=== PATIENT | female | born 1950 | race African-American/Black ===

== ENCOUNTER → 2016-04-22 | Outpatient (CLI) | payer BC ==
[2015-05-10 11:18] VITALS: BP 161/112
[~2016-04-22] MED LIST: DOCU-27 PO; HYDR-2666 PO; HYDR-2679 PO; PHEN100C PO; PHEN100T2
--- NOTE | 2016-04-22 14:50 | KCIC ---
PROCEDURE Bone mineral density exam HISTORY Postmenopausal COMPARISON None FINDINGS Left hip bone mineral density 1.168 grams/centimeters corresponds with a T-score 1.9 and a Z-score 1.8. Lumbar spine bone mineral density of 1.308 grams/cm2 corresponds with a T-score of-2.4 and a Z-score 3.3. World Health Organization criteria for bone mineral density interpretation: Normal T-score greater than or equal to-1.0, Osteopenia T score between-1.0 and-2.5, Osteoporosis T-score less than or equal to-2.5. IMPRESSION 1. There is normal bone density of the left hip and the lumbar spine. Electronically signed by: Kvng Chacon MD (Apr 22, 2016 14:49:26)
== END | disposition home or self-care (01) ==
LOC: KCIC DEXA 09:45
PROVIDERS: ATTEND Internal Medicine
DX: Z78.0 Asymptomatic menopausal state (principal); M81.8 Other osteoporosis without current pathological fracture
CPT/HCPCS: 77080

== ENCOUNTER 2017-03-24 03:15 | Inpatient (IN) | payer BC ==
[~2017-03-24] VITALS: Ht 170.2 cm; Wt 118.8 kg
[2017-03-24] VITALS (9 sets, daily range): BP systolic 127–161; BP diastolic 56–90
[~2017-03-24 03:15] MED LIST changes: +DOCU-109 PO; -DOCU-27 PO; -HYDR-2666 PO; +HYDR-2758 PO
[2017-03-24] MEDS ORDERED: IV NORMAL SALINE 1000ML BAG 1,000 ML IV SCH (03:45)
--- NOTE | 2017-03-24 03:50 | PHYS DOC ---
Past Medical History Past Medical History: Seizure Past Surgical History: Other Additional Past Surgical Histo: BACK SX Alcohol Use: None Drug Use: None Adult General Chief Complaint Chief Complaint: NAUSEA/VOMITING/DIARRHA HPI HPI Patient is a 66 year old female who presents with complaint of abdominal pain that started 2 hours prior to arrival. Patient states that the pain awoke her from sleep. Patient states that she is having sharp cramping pain along the right side of her upper abdomen which radiates towards her back. Patient denies history of similar symptoms. Patient has had nausea and vomiting associated with her symptoms. Patient denies any known fever and has had no diarrhea. Patient states that she has not taken any medications to help with her symptoms. Patient denies chest pain. Patient rates pain currently is 10 out of 10. Review of Systems Review of Systems Constitutional: Denies fever or chills [] Eyes: Denies change in visual acuity, redness, or eye pain [] HENT: Denies nasal congestion or sore throat [] Respiratory: Denies cough or shortness of breath [] Cardiovascular: Denies chest pain or edema [] GI: Abdominal pain, nausea, vomiting[] : Denies dysuria or hematuria [] Musculoskeletal: Denies back pain or joint pain [] Integument: Denies rash or skin lesions [] Neurologic: Denies headache, focal weakness or sensory changes [] All other systems were reviewed and found to be within normal limits, except as documented in this note. Current Medications Current Medications Current Medications Medications (Trade) Dose Ordered Sig/Gwendolyn Start Time Stop Time Status Last Admin Dose Admin Famotidine (Pepcid Vial) 20 mg 1X ONCE 03/24/17 04:00 03/24/17 04:01 DC 03/24/17 04:20 20 MG Fentanyl Citrate (Fentanyl 2ml Vial) 50 mcg PRN Q15MIN PRN 03/24/17 03:45 03/25/17 03:44 03/24/17 05:50 50 MCG Info (Do NOT chart on this entry -- for MONITORING) 1 each PRN DAILY PRN 03/24/17 06:30 03/26/17 06:29 Iohexol (Omnipaque 300 Mg/ml) 75 ml 1X ONCE 03/24/17 06:15 03/24/17 06:16 DC 03/24/17 06:35 75 ML Ondansetron HCl (Zofran) 4 mg 1X ONCE 03/24/17 04:45 03/24/17 04:59 DC 03/24/17 04:39 4 MG Sodium Chloride 1,000 ml @ 1,000 mls/hr Q1H 03/24/17 03:45 03/24/17 04:45 DC 03/24/17 04:20 1,000 MLS/HR Allergies Allergies Allergies Coded Allergies Type Severity Reaction Last Updated Verified No Known Drug Allergies 09/10/14 No Physical Exam Physical Exam Constitutional: Alert, afebrile, appears in moderate to severe discomfort. [] HENT: Normocephalic, atraumatic, bilateral external ears normal, oropharynx moist, no oral exudates, nose normal. [] Eyes: PERRLA, EOMI, conjunctiva normal, no discharge. [] Neck: Normal range of motion, no tenderness, supple, no stridor. [] Cardiovascular:Heart rate regular rhythm, no murmur [] Lungs & Thorax: Bilateral breath sounds clear to auscultation [] Abdomen: Bowel sounds normal, soft, epigastric and right upper quadrant tenderness to palpation with mild guarding, no rebound tenderness, no masses, no pulsatile masses. [] Skin: Warm, dry, no erythema, no rash. [] Back: No tenderness, no CVA tenderness. [] Extremities: No tenderness, no cyanosis, no clubbing, ROM intact, no edema. [] Neurologic: Alert and oriented X 3, normal motor function, normal sensory function, no focal deficits noted. [] Current Patient Data Vital Signs Vital Signs Date Time Temp Pulse Resp B/P (MAP) Pulse Ox O2 Delivery O2 Flow Rate FiO2 03/24/17 07:00 97.2 68 15 181/95 96 Room Air 97.2 Lab Values Laboratory Tests Test 03/24/17 04:15 03/24/17 04:50 White Blood Count 7.2 x10^3/uL (4.0-11.0) Red Blood Count 4.48 x10^6/uL (3.50-5.40) Hemoglobin 14.0 g/dL (12.0-15.5) Hematocrit 41.2 % (36.0-47.0) Mean Corpuscular Volume 92 fL (79-100) Mean Corpuscular Hemoglobin 31 pg (25-35) Mean Corpuscular Hemoglobin Concent 34 g/dL (31-37) Red Cell Distribution Width 13.9 % (11.5-14.5) Platelet Count 278 x10^3/uL (140-400) Neutrophils (%) (Auto) 58 % (31-73) Lymphocytes (%) (Auto) 32 % (24-48) Monocytes (%) (Auto) 6 % (0-9) Eosinophils (%) (Auto) 3 % (0-3) Basophils (%) (Auto) 1 % (0-3) Neutrophils # (Auto) 4.1 x10^3uL (1.8-7.7) Lymphocytes # (Auto) 2.3 x10^3/uL (1.0-4.8) Monocytes # (Auto) 0.4 x10^3/uL (0.0-1.1) Eosinophils # (Auto) 0.2 x10^3/uL (0.0-0.7) Basophils # (Auto) 0.1 x10^3/uL (0.0-0.2) Sodium Level 143 mmol/L (136-145) Potassium Level 3.7 mmol/L (3.5-5.1) Chloride Level 107 mmol/L (98-107) Carbon Dioxide Level 25 mmol/L (21-32) Anion Gap 11 (6-14) Blood Urea Nitrogen 10 mg/dL (7-20) Creatinine 0.7 mg/dL (0.6-1.0) Estimated GFR (Cockcroft-Gault) 101.9 BUN/Creatinine Ratio 14 (6-20) Glucose Level 155 mg/dL (70-99) H Calcium Level 8.4 mg/dL (8.5-10.1) L Total Bilirubin 0.2 mg/dL (0.2-1.0) Aspartate Amino Transferase (AST) 16 U/L (15-37) Alanine Aminotransferase (ALT) 21 U/L (14-59) Alkaline Phosphatase 100 U/L (46-116) Creatine Kinase 157 U/L (26-192) Creatine Kinase MB (Mass) 1.0 ng/mL (0.0-3.6) Creatine Kinase MB Relative Index 0.6 % (0-4) Troponin I Quantitative < 0.017 ng/mL (0.000-0.055) Total Protein 7.1 g/dL (6.4-8.2) Albumin 3.4 g/dL (3.4-5.0) Albumin/Globulin Ratio 0.9 (1.0-1.7) L Lipase 148 U/L (73-393) Urine Collection Type Unknown Urine Color Yellow Urine Clarity Clear Urine pH 6.0 Urine Specific [place] 1.020 Urine Protein Negative mg/dL (NEG-TRACE) Urine Glucose (UA) Negative mg/dL (NEG) Urine Ketones (Stick) Negative mg/dL (NEG) Urine Blood Trace (NEG) Urine Nitrite Negative (NEG) Urine Bilirubin Negative (NEG) Urine Urobilinogen Dipstick 0.2 mg/dL (0.2 mg/dL) Urine Leukocyte Esterase Small (NEG) Urine RBC 3-5 /HPF (0-2) Urine WBC 5-10 /HPF (0-4) Urine Squamous Epithelial Cells Mod /LPF Urine Bacteria Few /HPF (0-FEW) Urine Mucus Marked /LPF Laboratory Tests 03/24/17 04:15 Laboratory Tests 03/24/17 04:15 EKG EKG Interpreted by me: Heart rate 63, sinus rhythm, normal intervals, normal axis, no acute ST/T-wave abnormalities present[] Radiology/Procedures Radiology/Procedures [facility] [address] [address] IMAGING REPORT Signed PATIENT: MYNOR COELLO ACCOUNT: [id number] : 1950 LOCATION: ER AGE: 66 SEX: F EXAM STATUS: REG ER ORD. PHYSICIAN: MARIVEL MORTENSEN MD REASON: right upper quadrant abdominal pain PROCEDURE: ABDOMEN LTD EXAM: RIGHT UPPER QUADRANT ULTRASOUND. HISTORY: Right upper quadrant pain radiating to the back. Vomiting. COMPARISON: None. FINDINGS: Sonographic evaluation of the right upper quadrant was performed. The liver appears normal in parenchymal echotexture. There are no focal lesions. A gallstone is noted. There is no pericholecystic fluid or gallbladder wall thickening. There is no sonographic Camargo sign. The common duct measures 5 mm. The visualized portions of the head of the pancreas reveal no abnormality. The right kidney measures 11.3 cm. Cortical echogenicity appears at least mildly increased. Cortical thickness is preserved. There is no hydronephrosis. The visualized portions of the abdominal aorta and inferior vena cava are grossly patent and normal in caliber. IMPRESSION: 1. Cholelithiasis without sonographic evidence of acute cholecystitis. 2. Mildly increased right renal cortical echogenicity suggests intrinsic renal disease. Electronically signed by: Sally Montanez MD (03/24/2017 4:59 AM) [facility] DICTATED and SIGNED BY: TONY MONTANEZ MD DATE: 03/24/17 0452 CC: MARIVEL MORTENSEN MD; KIM FENG MD ~ [] Course & Med Decision Making Course & Med Decision Making Pertinent Labs and Imaging studies reviewed. (See chart for details) The patient was started on IV fluids, fentanyl, and Zofran. Patient's ultrasound showed evidence of gallstones but no signs of cholecystitis. The patient continues to complain of pain on reevaluation. A CT of the abdomen and pelvis was ordered and will be followed up by Dr. Parikh. Care of patient was signed out to Dr. Parikh at 0612. I assumed care of the patient from Dr. Mortensen. We reviewed her prior workup including relatively normal labs and gallbladder ultrasound positive for gallstones. Negative for cause of her pain. I was called by the radiologist with CT scan results. Closed loop small bowel obstruction on the right side. Also concerning for a right adnexal mass. I discussed the case with Dr. Narayanan, general surgery. He came to the ED to evaluate the patient and decided to take her to the operating room. I discussed the case with Dr. Feng who will admit the patient. I did discuss the finding of right adnexal mass and he will follow up on that after her primary problem is taken care of. I wrote bridge orders. Dragon Disclaimer Dragon Disclaimer This electronic medical record was generated, in whole or in part, using a voice recognition dictation system. Departure Departure Impression: Primary Impression: Small bowel obstruction Additional Impression: Adnexal mass Disposition: ADMITTED INPATIENT Admitting Physician: Kim Feng Condition: STABLE Referrals: KIM FENG MD (PCP) Problem Qualifiers MARIVEL MORTENSEN MD Mar 24, 2017 03:50 GROVER PARIKH MD Mar 24, 2017 07:00
[2017-03-24] MEDS ORDERED: ONDANSETRON PF 4 MG/2 ML VIAL. IV ONE ×2 (04:00→04:45)
[2017-03-24] MEDS ORDERED: FAMOTIDINE 20 MG/2 ML VIAL IVP ONE (04:00)
[2017-03-24] MEDS: fentaNYL PF VIAL 100 MCG/2 ML VIAL IV PRN ×5 (04:20→10:07)
[2017-03-24 04:24] LABS: BASO # 0.1 x10^3/uL (0.0-0.2); BASO % 1 % (0-3); EOS % 3 % (0-3); HEMATOCRIT 41.2 % (36.0-47.0); LYMPH # 2.3 x10^3/uL (1.0-4.8); LYMPH % 32 % (24-48); MEAN CORPUSCULAR HEMOGLOBIN 31 pg (25-35); MEAN CORPUSCULAR HGB CONC 34 g/dL (31-37); MEAN CORPUSCULAR VOLUME 92 fL (79-100); MONO % 6 % (0-9); NEUT % 58 % (31-73); PLATELET COUNT 278 x10^3/uL (140-400); RED BLOOD COUNT 4.48 x10^6/uL (3.50-5.40); RED CELL DISTRIBUTION WIDTH 13.9 % (11.5-14.5); WHITE BLOOD COUNT 7.2 x10^3/uL (4.0-11.0)
[2017-03-24 04:38] LABS: CALCIUM 8.4 mg/dL (8.5-10.1); CREATININE 0.7 mg/dL (0.6-1.0); GFR 101.9; POTASSIUM 3.7 mmol/L (3.5-5.1)
[2017-03-24 04:43] LABS: ALBUMIN 3.4 g/dL (3.4-5.0); TOTAL PROTEIN 7.1 g/dL (6.4-8.2)
[2017-03-24 04:44] LABS: ALBUMIN/GLOBULIN RATIO 0.9 (1.0-1.7); TOTAL BILIRUBIN 0.2 mg/dL (0.2-1.0)
--- NOTE | 2017-03-24 05:03 | RAD ---
EXAM: RIGHT UPPER QUADRANT ULTRASOUND. HISTORY: Right upper quadrant pain radiating to the back. Vomiting. COMPARISON: None. FINDINGS: Sonographic evaluation of the right upper quadrant was performed. The liver appears normal in parenchymal echotexture. There are no focal lesions. A gallstone is noted. There is no pericholecystic fluid or gallbladder wall thickening. There is no sonographic Camargo sign. The common duct measures 5 mm. The visualized portions of the head of the pancreas reveal no abnormality. The right kidney measures 11.3 cm. Cortical echogenicity appears at least mildly increased. Cortical thickness is preserved. There is no hydronephrosis. The visualized portions of the abdominal aorta and inferior vena cava are grossly patent and normal in caliber. IMPRESSION: 1. Cholelithiasis without sonographic evidence of acute cholecystitis. 2. Mildly increased right renal cortical echogenicity suggests intrinsic renal disease. Electronically signed by: Sally Montanez MD (03/24/2017 4:59 AM) [facility]
[2017-03-24 05:05] LABS: BILIRUBIN,URINE NEGATIVE (NEG); GLUCOSE,URINE NEGATIVE (NEG); NITRITE,URINE NEGATIVE (NEG); PROTEIN,URINE NEGATIVE (NEG-TRACE); UROBILINOGEN,URINE 0.2 mg/dL (0.2 mg/dL)
[2017-03-24 05:12] LABS: BACTERIA,URINE FEW /HPF (0-FEW); SQUAMOUS EPITHELIAL CELL,UR MOD /LPF
--- NOTE | 2017-03-24 06:14 | EKG ---
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
[2017-03-24] MEDS ORDERED: IOHEXOL 300 MG/ML 100ML VIAL. IV ONE (06:15)
[2017-03-24] MEDS ORDERED: CONTRAST GIVEN MC PRN (06:30)
--- NOTE | 2017-03-24 06:57 | RAD ---
EXAM: CT ABDOMEN/PELVIS WITH CONTRAST. HISTORY: Right abdominal pain. TECHNIQUE: Computed tomography of the abdomen and pelvis was performed after the intravenous administration of 75 mL Omnipaque 300. COMPARISON: None. FINDINGS: Lung windows through the visualized portions of the bases reveal mild airspace infiltrates in both costophrenic angles. There is mild diffuse bronchial wall thickening. There is distal esophageal wall thickening. Bone windows reveal no suspicious lesions. There is edematous mesentery about mildly dilated small bowel loops in the right abdomen. There is some architectural distortion along the associated mesentery with multiple transition points. This suggests a closed loop obstruction. There is a heterogeneous mass in the right adnexa that has very dense, soft tissue, fluid and fat density components. This measures 11.3 x 7.9 cm. The uterus and left ovary are difficult to otherwise identify. Left colonic diverticulosis is moderate. Mild left colonic wall thickening may be from luminal decompression. The appendix is not inflamed. A gallstone is better seen on prior ultrasound. The liver, pancreas, adrenal glands and kidneys are unremarkable. There is a calcified granuloma in the spleen. IMPRESSION: 1. Findings concerning for a closed loop small bowel obstruction in the right abdomen. 2. 11 cm heterogeneous right pelvic mass with soft tissue, enhancing, fluid and fat density components. This suggests an ovarian teratoma. Gynecologic consultation is recommended. 3. Cholelithiasis. 4. Correlate for distal esophagitis and left colitis. These findings were called to Dr. Torres by Juanjo Montanez on 03/24/2017 6:53 AM. *One or more of the following individualized dose reduction techniques were utilized for this examination: 1. Automated exposure control. 2. Adjustment of the mA and/or kV according to patient size. 3. Use of iterative reconstruction technique. Electronically signed by: Sally Montanez MD (03/24/2017 6:53 AM) [facility]
[2017-03-24] MEDS: IV RINGERS,LACTATED 1000ML 1,000 ML IV SCH ×4 (07:00→17:47)
[2017-03-24] MEDS ORDERED: BUPIVAC MPF-EPI 0.5%-1:200000 30 ML VIAL. ONE (07:28)
[2017-03-24] MEDS ORDERED: LIDOCAINE 1% PF 2 ML VIAL. INJ PRN ×2 (07:30→10:00)
[2017-03-24] MEDS ORDERED: SUCCINYLCHOLINE 200 MG/10 ML VIAL. ONE (07:37)
[2017-03-24] MEDS ORDERED: fentaNYL PF VIAL 100 MCG/2 ML VIAL ONE ×3 (07:38→09:38)
[2017-03-24] MEDS ORDERED: ROCURONIUM 50 MG/5 ML VIAL. ONE (07:38)
[2017-03-24] MEDS ORDERED: hydrALAZINE 20 MG/ML VIAL. IVP ONE (07:45)
[2017-03-24] MEDS ORDERED: ONDANSETRON PF 4 MG/2 ML VIAL. IV PRN ×2 (07:45→09:00)
[2017-03-24] MEDS ORDERED: ePHEDrine PF IN SALINE 50 MG/5 ML DISP.SYRIN IV ONE (08:11)
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
[2017-03-24] MEDS ORDERED: PHENYLEPHRINE in 0.9% NACL PF 1 MG/10 ML SYRINGE. IV ONE (08:17)
[2017-03-24] MEDS ORDERED: [UNRECOGNIZED DRUG - OTHER] IV ONE (08:30)
[2017-03-24] MEDS ORDERED: CEFOXITIN 1 GM IV ONE (08:30)
[2017-03-24] MEDS ORDERED: cefOXitin 2GM IVPB FOR OMNI 0 ML IV ONE (08:30)
[2017-03-24] MEDS ORDERED: PROPOFOL 20 ML IV ONE (08:50)
[2017-03-24] MEDS ORDERED: NEOSTIGMINE METHYLSULFATE 5 MG/5 ML SYRINGE. ONE (08:50)
[2017-03-24] MEDS ORDERED: GLYCOPYRROLATE 1 MG/5 ML VIAL. ONE (08:50)
[2017-03-24] MEDS ORDERED: ONDANSETRON PF 4 MG/2 ML VIAL. ONE (08:50)
[2017-03-24] MEDS ORDERED: LIDOCAINE 2% PF Vial for OR 5 ML VIAL. ONE (08:51)
[2017-03-24] MEDS ORDERED: HYDROcodone/APAP 5/325MG 1 TAB TABLET PO PRN (09:00)
[2017-03-24] MEDS ORDERED: 0.9 % SODIUM CHLORIDE 10 ML DISP.SYRIN. IV PRN (09:00)
[2017-03-24] MEDS ORDERED: MORPHINE SULFATE 2 MG/ML DISP.SYRIN. IV PRN (09:00)
[2017-03-24] MEDS ORDERED: KETOROLAC 30 MG/ML INJ. IV PRN (09:00)
--- NOTE | 2017-03-24 09:03 | PDOC4 ---
OPERATIVE NOTE Date: Date: Mar 24, 2017 Pre-Op Diagnosis: Small bowel obstruction, closed loop Post-Op Diagnosis: same Procedure Performed: Laparoscopic exploration, Lysis of adhesions Surgeon: Leland Xiong Anesthesia Type: GETA plus 0.5% marcaine Blood Loss: 50 Specimans Obtained: none Findings: closed loop obstruction secondary to band of omentum Complications: none Operative Note: After obtaining informed consent, patient was taken to the OR, induced under GETA, and prepped in the usual fashion. 5 mm ports placed right upper quadrant , periumbilical and LUQ, all under laparoscopic exploration. Abdominal cavity explored. Procedure difficult throughout secondary to obesity and non pliable abdominal wall secondary to scarring. Whitish fluid noted and sample sent to lab. Majority of viscera within normal limits. However, loop of small bowel in right upper quadrant noted to be purplish red in nature from closed loop obstruction. This was caused by a internal hernia secondary to band of omentum. This band was divided using endoshears. This resolve the bowel obstruction with viable appearing bowel. Remaining bowel also normal in appearance. No evidence of bleeding or other pathology at time of closure. Ports removed without bleeding. Skin repaired with 4 0 monocryl. Dressing applied. All counts correct. No immediate complications. Patient stable to PACU. LELAND XIONG MD Mar 24, 2017 09:03
[2017-03-24] MEDS ORDERED: IV RINGERS,LACTATED 1000ML 1,000 ML IV SCH (09:30)
--- NOTE | 2017-03-24 10:43 | PDOC ---
Provider Note Provider Note Patient seen. History and Physical dictated. See dictation# [id number] SHREYA BOURGEOIS MD Mar 24, 2017 10:43
[2017-03-24] MEDS ORDERED: ACETAMINOPHEN 325 MG TABLET. PO PRN (11:00)
--- NOTE | 2017-03-24 11:21 | HP ---
ADMIT DATE: 03/24/2017 HISTORY OF PRESENT ILLNESS: This 66-year-old female started having constipation that started 3 days ago on Wednesday. She was not able to have any bowel movement, so yesterday, she took some laxatives. This morning, she woke up with sudden onset of severe abdominal pain that she could not handle and she came to the Emergency Room. She also started having some nausea and vomiting at that time. In the Emergency Room, the patient was noted to have closed loop small-bowel obstruction. Because of that, Dr. Narayanan was consulted for surgical evaluation and management. The patient was taken immediately to the operating room. There, she had laparoscopic surgery for lysis of lesions and she was noted to have a band of omentum causing the problem. SYSTEMS REVIEW: As per the patient in the recovery room and at this time, the patient states that she is feeling a lot better. Her abdominal pain is much better. She denies any nausea, vomiting, cold, cough, congestion, chest pains, palpitations, dyspnea, dizziness or leg pain. Other systems are reviewed and are negative. PAST MEDICAL HISTORY: The patient has history of seizure disorder, thyroid goiter with bilateral thyroid nodules and one of them was hyperfunctioning nodule, diverticulosis, colonic polyps. She has a history of sleep apnea, obesity including previous premorbid obesity, vitamin D deficiency, B12 deficiency. PAST SURGICAL HISTORY: The patient had colonoscopy with biopsy and had injection of the tendon sheath ligament. SOCIAL HISTORY: The patient has a history of smoking. No history of alcoholism, drug abuse. FAMILY HISTORY: Brother had a myocardial infarction and diabetes. Another brother had colon cancer and CVA at age 54 and also has seizures post CVA. Father had coronary artery disease. Mother, diabetes mellitus and coronary artery disease and sister had cerebral aneurysm. ALLERGIES: None known any. MEDICATIONS: The patient is on Dilantin 100 mg 2 capsules in the a.m. and 2 capsules in the evening. She is also on cyanocobalamin 5000 mcg sublingually and also Centrum Silver daily. PHYSICAL EXAMINATION: GENERAL: The patient is a middle-aged female who is alert, oriented and not in any acute distress. VITAL SIGNS: Temperature 98, pulse 69 per minute, respirations 16 per minute, blood pressure 140/75 mmHg. When she was initially admitted to the ER, her blood pressure was very high and it went up to 200/118 mmHg. She was given IV hydralazine at that time. HEENT: The patient is alert, oriented, not in any acute distress. EYES: Pupils reacting to light. Conjunctivae pale. Sclerae muddy. HENT: Unremarkable. SKIN: Warm and dry, thyroid goiter with small nodules noted. LUNGS: Clear anteriorly. CARDIOVASCULAR SYSTEM: S1, S2 regular. ABDOMEN: The patient is status post surgery, dressing in place. Bowel sounds absent. EXTREMITIES: No edema, no calf tenderness. CENTRAL NERVOUS SYSTEM: Alert and oriented. LABORATORY FINDINGS: WBC count 7.2, hemoglobin 14, platelet count 278,000. Sodium 143, potassium 3.7, BUN 10, creatinine 0.7, glucose 155, calcium 8.4, albumin 3.4. Cardiac enzymes normal. Urinalysis: Small leukocyte esterase, a few bacteria, 5-10 wbc's, 3-[address] scan of abdomen and pelvis shows closed loop small-bowel obstruction, 11 cm heterogeneous right pelvic mass with soft tissue enhancement. The abdomen showed cholelithiasis. IMPRESSION: 1. Small-bowel obstruction, status post laparoscopic surgery with lysis of adhesions. 2. Malignant hypertension, likely due to pain, resolved. Blood pressure is much better. 3. Seizure disorder, on Dilantin. 4. Thyroid goiter. 5. Cholelithiasis, asymptomatic. 6. 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 PLAN: Keep n.p.o. after surgery. I will start her on IV Dilantin. Continue pain medications. Dr. Narayanan has been consulted. 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 For details, please refer to the orders. SHREYA BOURGEOIS MD DR: BRENDA/gerry JOB#: [id number] / [id number]
[2017-03-24] MEDS ORDERED: PHENYTOIN SODIUM EXTENDED 100 MG CAPSULE PO SCH (11:30)
[2017-03-24] MEDS ORDERED: PHEN100C PO ×2 (11:32)
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
[2017-03-24] MEDS: DOCUSATE SODIUM 100 MG CAPSULE. PO SCH (20:22)
[2017-03-24] MEDS: PHENYTOIN SODIUM EXTENDED 100 MG CAPSULE PO SCH (20:23)
[2017-03-24] MEDS: ENOXAPARIN 40 MG/0.4 ML SYRINGE. SQ SCH (20:23)
[2017-03-25 03:47] VITALS: BP 136/91
[2017-03-25 05:07] LABS: BASO % 0 % (0-3); EOS % 0 % (0-3); HEMATOCRIT 39.1 % (36.0-47.0); LYMPH # 2.2 x10^3/uL (1.0-4.8); LYMPH % 17 % (24-48); MEAN CORPUSCULAR HEMOGLOBIN 31 pg (25-35); MEAN CORPUSCULAR HGB CONC 33 g/dL (31-37); MEAN CORPUSCULAR VOLUME 93 fL (79-100); MONO % 5 % (0-9); NEUT % 78 % (31-73); PLATELET COUNT 264 x10^3/uL (140-400); RED CELL DISTRIBUTION WIDTH 13.8 % (11.5-14.5); WHITE BLOOD COUNT 12.9 x10^3/uL (4.0-11.0)
[2017-03-25 06:11] LABS: ALBUMIN 3.1 g/dL (3.4-5.0); ALBUMIN/GLOBULIN RATIO 0.8 (1.0-1.7); ALK PHOS 96 U/L (46-116); ALT (SGPT) 19 U/L (14-59); ANION GAP 12 (6-14); AST (SGOT) 19 U/L (15-37); BLOOD UREA NITROGEN 8 mg/dL (7-20); BUN/CREATININE RATIO 13 (6-20); CALCIUM 7.7 mg/dL (8.5-10.1); CARBON DIOXIDE 23 mmol/L (21-32); CHLORIDE 109 mmol/L (98-107); CREATININE 0.6 mg/dL (0.6-1.0); GFR 121.8; GLUCOSE 98 mg/dL (70-99); POTASSIUM 3.6 mmol/L (3.5-5.1); SODIUM 144 mmol/L (136-145); TOTAL BILIRUBIN 0.2 mg/dL (0.2-1.0); TOTAL PROTEIN 6.9 g/dL (6.4-8.2)
[2017-03-25 07:00] VITALS: BP 163/88
[2017-03-25] MEDS: DOCUSATE SODIUM 100 MG CAPSULE. PO SCH ×2 (09:45→20:29)
[2017-03-25] MEDS: PHENYTOIN SODIUM EXTENDED 100 MG CAPSULE PO SCH ×2 (09:45→20:29)
[2017-03-25] MEDS: ENOXAPARIN 40 MG/0.4 ML SYRINGE. SQ SCH ×2 (09:46→20:30)
[2017-03-25 11:00] VITALS: BP 138/78
--- NOTE | 2017-03-25 11:21 | PDOC ---
SURGICAL PROGRESS NOTE Subjective tolerating clears, no n/v No flatus pain managed Vital Signs Vital Signs Date Time Temp Pulse Resp B/P (MAP) Pulse Ox O2 Delivery O2 Flow Rate FiO2 03/25/17 08:00 Room Air 2.0 03/25/17 07:00 98.0 66 18 163/88 (113) 99 98.0 I&O Intake and Output 03/25/17 06:59 Intake Total 1200 ml Output Total 300 ml Balance 900 ml Intake Oral 100 ml IV Total 1100 ml Output Urine Total 300 ml # Voids 3 General: Alert, Oriented X3, Cooperative, No acute distress Abdomen: Soft, Other (lap dressings dry ) Labs Laboratory Tests Test 03/24/17 04:15 03/24/17 04:50 03/25/17 04:10 White Blood Count 7.2 x10^3/uL (4.0-11.0) 12.9 x10^3/uL (4.0-11.0) Red Blood Count 4.48 x10^6/uL (3.50-5.40) 4.20 x10^6/uL (3.50-5.40) Hemoglobin 14.0 g/dL (12.0-15.5) 13.0 g/dL (12.0-15.5) Hematocrit 41.2 % (36.0-47.0) 39.1 % (36.0-47.0) Mean Corpuscular Volume 92 fL (79-100) 93 fL (79-100) Mean Corpuscular Hemoglobin 31 pg (25-35) 31 pg (25-35) Mean Corpuscular Hemoglobin Concent 34 g/dL (31-37) 33 g/dL (31-37) Red Cell Distribution Width 13.9 % (11.5-14.5) 13.8 % (11.5-14.5) Platelet Count 278 x10^3/uL (140-400) 264 x10^3/uL (140-400) Neutrophils (%) (Auto) 58 % (31-73) 78 % (31-73) Lymphocytes (%) (Auto) 32 % (24-48) 17 % (24-48) Monocytes (%) (Auto) 6 % (0-9) 5 % (0-9) Eosinophils (%) (Auto) 3 % (0-3) 0 % (0-3) Basophils (%) (Auto) 1 % (0-3) 0 % (0-3) Neutrophils # (Auto) 4.1 x10^3uL (1.8-7.7) 10.0 x10^3uL (1.8-7.7) Lymphocytes # (Auto) 2.3 x10^3/uL (1.0-4.8) 2.2 x10^3/uL (1.0-4.8) Monocytes # (Auto) 0.4 x10^3/uL (0.0-1.1) 0.6 x10^3/uL (0.0-1.1) Eosinophils # (Auto) 0.2 x10^3/uL (0.0-0.7) 0.0 x10^3/uL (0.0-0.7) Basophils # (Auto) 0.1 x10^3/uL (0.0-0.2) 0.0 x10^3/uL (0.0-0.2) Sodium Level 143 mmol/L (136-145) 144 mmol/L (136-145) Potassium Level 3.7 mmol/L (3.5-5.1) 3.6 mmol/L (3.5-5.1) Chloride Level 107 mmol/L (98-107) 109 mmol/L (98-107) Carbon Dioxide Level 25 mmol/L (21-32) 23 mmol/L (21-32) Anion Gap 11 (6-14) 12 (6-14) Blood Urea Nitrogen 10 mg/dL (7-20) 8 mg/dL (7-20) Creatinine 0.7 mg/dL (0.6-1.0) 0.6 mg/dL (0.6-1.0) Estimated GFR (Cockcroft-Gault) 101.9 121.8 BUN/Creatinine Ratio 14 (6-20) 13 (6-20) Glucose Level 155 mg/dL (70-99) 98 mg/dL (70-99) Calcium Level 8.4 mg/dL (8.5-10.1) 7.7 mg/dL (8.5-10.1) Total Bilirubin 0.2 mg/dL (0.2-1.0) 0.2 mg/dL (0.2-1.0) Aspartate Amino Transf (AST/SGOT) 16 U/L (15-37) 19 U/L (15-37) Alanine Aminotransferase (ALT/SGPT) 21 U/L (14-59) 19 U/L (14-59) Alkaline Phosphatase 100 U/L (46-116) 96 U/L (46-116) Creatine Kinase 157 U/L (26-192) Creatine Kinase MB (Mass) 1.0 ng/mL (0.0-3.6) Creatine Kinase MB Relative Index 0.6 % (0-4) Troponin I Quantitative < 0.017 ng/mL (0.000-0.055) Total Protein 7.1 g/dL (6.4-8.2) 6.9 g/dL (6.4-8.2) Albumin 3.4 g/dL (3.4-5.0) 3.1 g/dL (3.4-5.0) Albumin/Globulin Ratio 0.9 (1.0-1.7) 0.8 (1.0-1.7) Lipase 148 U/L (73-393) Urine Collection Type Unknown Urine Color Yellow Urine Clarity Clear Urine pH 6.0 Urine Specific [place] 1.020 Urine Protein Negative mg/dL (NEG-TRACE) Urine Glucose (UA) Negative mg/dL (NEG) Urine Ketones (Stick) Negative mg/dL (NEG) Urine Blood Trace (NEG) Urine Nitrite Negative (NEG) Urine Bilirubin Negative (NEG) Urine Urobilinogen Dipstick 0.2 mg/dL (0.2 mg/dL) Urine Leukocyte Esterase Small (NEG) Urine RBC 3-5 /HPF (0-2) Urine WBC 5-10 /HPF (0-4) Urine Squamous Epithelial Cells Mod /LPF Urine Bacteria Few /HPF (0-FEW) Urine Mucus Marked /LPF Phenytoin (Dilantin) Level 12.1 mcg/mL (10.0-20.0) Phenytoin Last Dose Date 03/23/17 Phenytoin Last Dose Time 1900 Laboratory Tests Test 03/25/17 04:10 White Blood Count 12.9 x10^3/uL (4.0-11.0) Red Blood Count 4.20 x10^6/uL (3.50-5.40) Hemoglobin 13.0 g/dL (12.0-15.5) Hematocrit 39.1 % (36.0-47.0) Mean Corpuscular Volume 93 fL (79-100) Mean Corpuscular Hemoglobin 31 pg (25-35) Mean Corpuscular Hemoglobin Concent 33 g/dL (31-37) Red Cell Distribution Width 13.8 % (11.5-14.5) Platelet Count 264 x10^3/uL (140-400) Neutrophils (%) (Auto) 78 % (31-73) Lymphocytes (%) (Auto) 17 % (24-48) Monocytes (%) (Auto) 5 % (0-9) Eosinophils (%) (Auto) 0 % (0-3) Basophils (%) (Auto) 0 % (0-3) Neutrophils # (Auto) 10.0 x10^3uL (1.8-7.7) Lymphocytes # (Auto) 2.2 x10^3/uL (1.0-4.8) Monocytes # (Auto) 0.6 x10^3/uL (0.0-1.1) Eosinophils # (Auto) 0.0 x10^3/uL (0.0-0.7) Basophils # (Auto) 0.0 x10^3/uL (0.0-0.2) Sodium Level 144 mmol/L (136-145) Potassium Level 3.6 mmol/L (3.5-5.1) Chloride Level 109 mmol/L (98-107) Carbon Dioxide Level 23 mmol/L (21-32) Anion Gap 12 (6-14) Blood Urea Nitrogen 8 mg/dL (7-20) Creatinine 0.6 mg/dL (0.6-1.0) Estimated GFR (Cockcroft-Gault) 121.8 BUN/Creatinine Ratio 13 (6-20) Glucose Level 98 mg/dL (70-99) Calcium Level 7.7 mg/dL (8.5-10.1) Total Bilirubin 0.2 mg/dL (0.2-1.0) Aspartate Amino Transf (AST/SGOT) 19 U/L (15-37) Alanine Aminotransferase (ALT/SGPT) 19 U/L (14-59) Alkaline Phosphatase 96 U/L (46-116) Total Protein 6.9 g/dL (6.4-8.2) Albumin 3.1 g/dL (3.4-5.0) Albumin/Globulin Ratio 0.8 (1.0-1.7) Phenytoin (Dilantin) Level 12.1 mcg/mL (10.0-20.0) Phenytoin Last Dose Date 03/23/17 Phenytoin Last Dose Time 1900 Problem List Problems Medical Problems: (1) Adnexal mass Status: Acute (2) Small bowel obstruction Status: Acute Assessment/Plan s/p lap exploration, HECTOR zavaleta, await bowel function ambulate Problems: JUANITO QUINTANA APRN Mar 25, 2017 11:21
--- NOTE | 2017-03-25 11:24 | PDOC ---
IM PROGRESS NOTES- Subjective Subjective Abdominal pain improving. Objective Vitals Vital Signs Date Time Temp Pulse Resp B/P (MAP) Pulse Ox O2 Delivery O2 Flow Rate FiO2 03/25/17 11:00 97.9 63 18 138/78 (98) 99 Room Air 97.9 03/25/17 08:00 2.0 Input & Output Intake and Output 03/25/17 06:59 Intake Total 1200 ml Output Total 300 ml Balance 900 ml Intake Oral 100 ml IV Total 1100 ml Output Urine Total 300 ml # Voids 3 Physical Exam Physical Exam General appearance - alert,well appearing, and in no distress and oriented to person, place, and time Mental Status - alert, oriented to person, place, and time, affect appropriate to mood Head - normal Chest - clear to auscultation, no wheezes, rales or rhonchi, symmetric air entry Heart - S1 and S2 normal Abdomen - soft,s/p surgery Neurological - alert and oriented Musculoskeletal - no muscular tenderness noted Extremities - no pedal edema Skin - warm and dry Labs Laboratory Tests Test 03/24/17 04:15 03/24/17 04:50 03/25/17 04:10 White Blood Count 7.2 x10^3/uL (4.0-11.0) 12.9 x10^3/uL (4.0-11.0) Red Blood Count 4.48 x10^6/uL (3.50-5.40) 4.20 x10^6/uL (3.50-5.40) Hemoglobin 14.0 g/dL (12.0-15.5) 13.0 g/dL (12.0-15.5) Hematocrit 41.2 % (36.0-47.0) 39.1 % (36.0-47.0) Mean Corpuscular Volume 92 fL (79-100) 93 fL (79-100) Mean Corpuscular Hemoglobin 31 pg (25-35) 31 pg (25-35) Mean Corpuscular Hemoglobin Concent 34 g/dL (31-37) 33 g/dL (31-37) Red Cell Distribution Width 13.9 % (11.5-14.5) 13.8 % (11.5-14.5) Platelet Count 278 x10^3/uL (140-400) 264 x10^3/uL (140-400) Neutrophils (%) (Auto) 58 % (31-73) 78 % (31-73) Lymphocytes (%) (Auto) 32 % (24-48) 17 % (24-48) Monocytes (%) (Auto) 6 % (0-9) 5 % (0-9) Eosinophils (%) (Auto) 3 % (0-3) 0 % (0-3) Basophils (%) (Auto) 1 % (0-3) 0 % (0-3) Neutrophils # (Auto) 4.1 x10^3uL (1.8-7.7) 10.0 x10^3uL (1.8-7.7) Lymphocytes # (Auto) 2.3 x10^3/uL (1.0-4.8) 2.2 x10^3/uL (1.0-4.8) Monocytes # (Auto) 0.4 x10^3/uL (0.0-1.1) 0.6 x10^3/uL (0.0-1.1) Eosinophils # (Auto) 0.2 x10^3/uL (0.0-0.7) 0.0 x10^3/uL (0.0-0.7) Basophils # (Auto) 0.1 x10^3/uL (0.0-0.2) 0.0 x10^3/uL (0.0-0.2) Sodium Level 143 mmol/L (136-145) 144 mmol/L (136-145) Potassium Level 3.7 mmol/L (3.5-5.1) 3.6 mmol/L (3.5-5.1) Chloride Level 107 mmol/L (98-107) 109 mmol/L (98-107) Carbon Dioxide Level 25 mmol/L (21-32) 23 mmol/L (21-32) Anion Gap 11 (6-14) 12 (6-14) Blood Urea Nitrogen 10 mg/dL (7-20) 8 mg/dL (7-20) Creatinine 0.7 mg/dL (0.6-1.0) 0.6 mg/dL (0.6-1.0) Estimated GFR (Cockcroft-Gault) 101.9 121.8 BUN/Creatinine Ratio 14 (6-20) 13 (6-20) Glucose Level 155 mg/dL (70-99) 98 mg/dL (70-99) Calcium Level 8.4 mg/dL (8.5-10.1) 7.7 mg/dL (8.5-10.1) Total Bilirubin 0.2 mg/dL (0.2-1.0) 0.2 mg/dL (0.2-1.0) Aspartate Amino Transf (AST/SGOT) 16 U/L (15-37) 19 U/L (15-37) Alanine Aminotransferase (ALT/SGPT) 21 U/L (14-59) 19 U/L (14-59) Alkaline Phosphatase 100 U/L (46-116) 96 U/L (46-116) Creatine Kinase 157 U/L (26-192) Creatine Kinase MB (Mass) 1.0 ng/mL (0.0-3.6) Creatine Kinase MB Relative Index 0.6 % (0-4) Troponin I Quantitative < 0.017 ng/mL (0.000-0.055) Total Protein 7.1 g/dL (6.4-8.2) 6.9 g/dL (6.4-8.2) Albumin 3.4 g/dL (3.4-5.0) 3.1 g/dL (3.4-5.0) Albumin/Globulin Ratio 0.9 (1.0-1.7) 0.8 (1.0-1.7) Lipase 148 U/L (73-393) Urine Collection Type Unknown Urine Color Yellow Urine Clarity Clear Urine pH 6.0 Urine Specific [place] 1.020 Urine Protein Negative mg/dL (NEG-TRACE) Urine Glucose (UA) Negative mg/dL (NEG) Urine Ketones (Stick) Negative mg/dL (NEG) Urine Blood Trace (NEG) Urine Nitrite Negative (NEG) Urine Bilirubin Negative (NEG) Urine Urobilinogen Dipstick 0.2 mg/dL (0.2 mg/dL) Urine Leukocyte Esterase Small (NEG) Urine RBC 3-5 /HPF (0-2) Urine WBC 5-10 /HPF (0-4) Urine Squamous Epithelial Cells Mod /LPF Urine Bacteria Few /HPF (0-FEW) Urine Mucus Marked /LPF Phenytoin (Dilantin) Level 12.1 mcg/mL (10.0-20.0) Phenytoin Last Dose Date 03/23/17 Phenytoin Last Dose Time 1900 Laboratory Tests Test 03/25/17 04:10 White Blood Count 12.9 x10^3/uL (4.0-11.0) Red Blood Count 4.20 x10^6/uL (3.50-5.40) Hemoglobin 13.0 g/dL (12.0-15.5) Hematocrit 39.1 % (36.0-47.0) Mean Corpuscular Volume 93 fL (79-100) Mean Corpuscular Hemoglobin 31 pg (25-35) Mean Corpuscular Hemoglobin Concent 33 g/dL (31-37) Red Cell Distribution Width 13.8 % (11.5-14.5) Platelet Count 264 x10^3/uL (140-400) Neutrophils (%) (Auto) 78 % (31-73) Lymphocytes (%) (Auto) 17 % (24-48) Monocytes (%) (Auto) 5 % (0-9) Eosinophils (%) (Auto) 0 % (0-3) Basophils (%) (Auto) 0 % (0-3) Neutrophils # (Auto) 10.0 x10^3uL (1.8-7.7) Lymphocytes # (Auto) 2.2 x10^3/uL (1.0-4.8) Monocytes # (Auto) 0.6 x10^3/uL (0.0-1.1) Eosinophils # (Auto) 0.0 x10^3/uL (0.0-0.7) Basophils # (Auto) 0.0 x10^3/uL (0.0-0.2) Sodium Level 144 mmol/L (136-145) Potassium Level 3.6 mmol/L (3.5-5.1) Chloride Level 109 mmol/L (98-107) Carbon Dioxide Level 23 mmol/L (21-32) Anion Gap 12 (6-14) Blood Urea Nitrogen 8 mg/dL (7-20) Creatinine 0.6 mg/dL (0.6-1.0) Estimated GFR (Cockcroft-Gault) 121.8 BUN/Creatinine Ratio 13 (6-20) Glucose Level 98 mg/dL (70-99) Calcium Level 7.7 mg/dL (8.5-10.1) Total Bilirubin 0.2 mg/dL (0.2-1.0) Aspartate Amino Transf (AST/SGOT) 19 U/L (15-37) Alanine Aminotransferase (ALT/SGPT) 19 U/L (14-59) Alkaline Phosphatase 96 U/L (46-116) Total Protein 6.9 g/dL (6.4-8.2) Albumin 3.1 g/dL (3.4-5.0) Albumin/Globulin Ratio 0.8 (1.0-1.7) Phenytoin (Dilantin) Level 12.1 mcg/mL (10.0-20.0) Phenytoin Last Dose Date 03/23/17 Phenytoin Last Dose Time 1900 Meds Current Medications Docusate Sodium (Colace) 100 mg BID PO Last administered on 03/25/17 09:45; Start 03/24/17 at 21:00 Enoxaparin Sodium (Lovenox 40mg Syringe) 40 mg Q12HR SQ Last administered on 09:46; Start 03/24/17 at 21:00 Phenytoin Sodium (Dilantin) 200 mg DAILY08 PO Last administered on 03/25/17 09:45; Start 03/25/17 at 08:00; Stop 03/30/17 at 11:29 Phenytoin Sodium (Dilantin) 200 mg Q12HR PO Last administered on 03/24/17 11: 56; Start 03/24/17 at 11:30; Stop 03/24/17 at 17:06; Status DC Phenytoin Sodium (Dilantin) 300 mg HS PO Last administered on 03/24/17 20:23 ; Start 03/24/17 at 21:00 Potassium Chloride/Sodium Chloride 1,000 ml @ 100 mls/hr Q10H IV Last administered on 03/25/17 05:42; Start 03/24/17 at 11:30 Assessment Assessment 1. Small-bowel obstruction, status post laparoscopic surgery with lysis of adhesions. 2. Malignant hypertension, likely due to pain, resolved. Blood pressure is much better. 3. Seizure disorder, on Dilantin. 4. Thyroid goiter. 5. Cholelithiasis, asymptomatic. 6. 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 PLAN: On oral Dilantin. Continue pain medications. Tolerating liquid diet. d/w Dr.Erin yesterday - outpatient followup for possible ovarian Teratoma. Hypokalemia- K 3.6. Hypertension- BP 163/88 /due to pain- monitor. not on BP meds at home. Leukocytosi- WBC 12.9- likely reactive. Plan Plan For more details regarding further plans, please refer to the orders. SHREYA BOURGEOIS MD Mar 25, 2017 11:24
[2017-03-25 15:00] VITALS: BP 133/84
[2017-03-25 19:35] VITALS: BP 144/84
[2017-03-25 23:35] VITALS: BP 155/85
[2017-03-26 03:00] VITALS: BP 148/91
[2017-03-26 05:26] LABS: CALCIUM 7.6 mg/dL (8.5-10.1); CREATININE 0.7 mg/dL (0.6-1.0); GFR 101.9
[2017-03-26 07:19] VITALS: BP 119/89
[2017-03-26] MEDS: DOCUSATE SODIUM 100 MG CAPSULE. PO SCH (08:57)
[2017-03-26] MEDS: ENOXAPARIN 40 MG/0.4 ML SYRINGE. SQ SCH (08:59)
--- NOTE | 2017-03-26 10:31 | PDOC ---
SURGICAL PROGRESS NOTE Subjective tolerating diet having stools pain managed Vital Signs Vital Signs Date Time Temp Pulse Resp B/P (MAP) Pulse Ox O2 Delivery O2 Flow Rate FiO2 03/26/17 07:19 98.1 59 18 119/89 (99) 95 Room Air 98.1 03/25/17 08:00 2.0 I&O Intake and Output 03/26/17 07:00 Intake Total 1080 ml Balance 1080 ml Intake Oral 1080 ml # Voids 4 # Bowel Movements 2 General: Alert, Oriented X3, Cooperative, No acute distress Abdomen: Soft, Other (lap sites c/d/i, no erythema ) Labs Laboratory Tests Test 03/25/17 04:10 03/26/17 03:30 White Blood Count 12.9 x10^3/uL (4.0-11.0) Red Blood Count 4.20 x10^6/uL (3.50-5.40) Hemoglobin 13.0 g/dL (12.0-15.5) Hematocrit 39.1 % (36.0-47.0) Mean Corpuscular Volume 93 fL (79-100) Mean Corpuscular Hemoglobin 31 pg (25-35) Mean Corpuscular Hemoglobin Concent 33 g/dL (31-37) Red Cell Distribution Width 13.8 % (11.5-14.5) Platelet Count 264 x10^3/uL (140-400) Neutrophils (%) (Auto) 78 % (31-73) Lymphocytes (%) (Auto) 17 % (24-48) Monocytes (%) (Auto) 5 % (0-9) Eosinophils (%) (Auto) 0 % (0-3) Basophils (%) (Auto) 0 % (0-3) Neutrophils # (Auto) 10.0 x10^3uL (1.8-7.7) Lymphocytes # (Auto) 2.2 x10^3/uL (1.0-4.8) Monocytes # (Auto) 0.6 x10^3/uL (0.0-1.1) Eosinophils # (Auto) 0.0 x10^3/uL (0.0-0.7) Basophils # (Auto) 0.0 x10^3/uL (0.0-0.2) Sodium Level 144 mmol/L (136-145) 143 mmol/L (136-145) Potassium Level 3.6 mmol/L (3.5-5.1) 4.0 mmol/L (3.5-5.1) Chloride Level 109 mmol/L (98-107) 110 mmol/L (98-107) Carbon Dioxide Level 23 mmol/L (21-32) 26 mmol/L (21-32) Anion Gap 12 (6-14) 7 (6-14) Blood Urea Nitrogen 8 mg/dL (7-20) 6 mg/dL (7-20) Creatinine 0.6 mg/dL (0.6-1.0) 0.7 mg/dL (0.6-1.0) Estimated GFR (Cockcroft-Gault) 121.8 101.9 BUN/Creatinine Ratio 13 (6-20) Glucose Level 98 mg/dL (70-99) 92 mg/dL (70-99) Calcium Level 7.7 mg/dL (8.5-10.1) 7.6 mg/dL (8.5-10.1) Total Bilirubin 0.2 mg/dL (0.2-1.0) Aspartate Amino Transf (AST/SGOT) 19 U/L (15-37) Alanine Aminotransferase (ALT/SGPT) 19 U/L (14-59) Alkaline Phosphatase 96 U/L (46-116) Total Protein 6.9 g/dL (6.4-8.2) Albumin 3.1 g/dL (3.4-5.0) Albumin/Globulin Ratio 0.8 (1.0-1.7) Phenytoin (Dilantin) Level 12.1 mcg/mL (10.0-20.0) Phenytoin Last Dose Date 03/23/17 Phenytoin Last Dose Time 1900 Laboratory Tests Test 03/26/17 03:30 Sodium Level 143 mmol/L (136-145) Potassium Level 4.0 mmol/L (3.5-5.1) Chloride Level 110 mmol/L (98-107) Carbon Dioxide Level 26 mmol/L (21-32) Anion Gap 7 (6-14) Blood Urea Nitrogen 6 mg/dL (7-20) Creatinine 0.7 mg/dL (0.6-1.0) Estimated GFR (Cockcroft-Gault) 101.9 Glucose Level 92 mg/dL (70-99) Calcium Level 7.6 mg/dL (8.5-10.1) Problem List Problems Medical Problems: (1) Adnexal mass Status: Acute (2) Small bowel obstruction Status: Acute Assessment/Plan s/p lap exploration, HECTOR vargas to DC FU [address] Narayanan Problems: JUANITO QUINTANA APRN Mar 26, 2017 10:31
--- NOTE | 2017-03-26 10:58 | DISCH ---
DISCHARGE INSTRUCTIONS Condition on Discharge Condition on Discharge: Stable Activity After Discharge Activity Instructions for Disc: Activity as tolerated Diet after Discharge Diet after Discharge: Regular Contacting the DRKathleen after DC Call your doctor for: Concerns you may have Follow-Up Follow up with: Dr.Pratip Bourgeois 04/01/17 SHREYA BOURGEOIS MD Mar 26, 2017 10:58
[2017-03-26] MEDS: PHENYTOIN SODIUM EXTENDED 100 MG CAPSULE PO SCH (11:11)
[2017-03-26 11:25] VITALS: BP 158/71
[2017-03-26 11:43] LABS: BASO # 0.1 x10^3/uL (0.0-0.2); BASO % 1 % (0-3); EOS % 2 % (0-3); HEMATOCRIT 40.1 % (36.0-47.0); HEMOGLOBIN 13.4 g/dL (12.0-15.5); LYMPH # 3.2 x10^3/uL (1.0-4.8); LYMPH % 42 % (24-48); MEAN CORPUSCULAR HEMOGLOBIN 31 pg (25-35); MEAN CORPUSCULAR HGB CONC 33 g/dL (31-37); MEAN CORPUSCULAR VOLUME 93 fL (79-100); MONO % 5 % (0-9); NEUT % 49 % (31-73); PLATELET COUNT 254 x10^3/uL (140-400); RED BLOOD COUNT 4.31 x10^6/uL (3.50-5.40); RED CELL DISTRIBUTION WIDTH 14.1 % (11.5-14.5); WHITE BLOOD COUNT 7.5 x10^3/uL (4.0-11.0)
--- NOTE | 2017-03-26 11:45 | PDOC ---
IM PROGRESS NOTES- Subjective Subjective Abdominal pain better. Objective Vitals Vital Signs Date Time Temp Pulse Resp B/P (MAP) Pulse Ox O2 Delivery O2 Flow Rate FiO2 03/26/17 07:19 98.1 59 18 119/89 (99) 95 Room Air 98.1 03/25/17 08:00 2.0 Input & Output Intake and Output 03/26/17 06:59 Intake Total 1080 ml Balance 1080 ml Intake Oral 1080 ml # Voids 4 # Bowel Movements 2 Physical Exam Physical Exam General appearance - alert,well appearing, and in no distress and oriented to person, place, and time Mental Status - alert, oriented to person, place, and time, affect appropriate to mood Head - normal Chest - clear to auscultation, no wheezes, rales or rhonchi, symmetric air entry Heart - S1 and S2 normal Abdomen - soft,s/p surgery Neurological - alert and oriented Musculoskeletal - no muscular tenderness noted Extremities - no pedal edema Skin - warm and dry Labs Laboratory Tests Test 03/25/17 04:10 03/26/17 03:30 White Blood Count 12.9 x10^3/uL (4.0-11.0) Red Blood Count 4.20 x10^6/uL (3.50-5.40) Hemoglobin 13.0 g/dL (12.0-15.5) Hematocrit 39.1 % (36.0-47.0) Mean Corpuscular Volume 93 fL (79-100) Mean Corpuscular Hemoglobin 31 pg (25-35) Mean Corpuscular Hemoglobin Concent 33 g/dL (31-37) Red Cell Distribution Width 13.8 % (11.5-14.5) Platelet Count 264 x10^3/uL (140-400) Neutrophils (%) (Auto) 78 % (31-73) Lymphocytes (%) (Auto) 17 % (24-48) Monocytes (%) (Auto) 5 % (0-9) Eosinophils (%) (Auto) 0 % (0-3) Basophils (%) (Auto) 0 % (0-3) Neutrophils # (Auto) 10.0 x10^3uL (1.8-7.7) Lymphocytes # (Auto) 2.2 x10^3/uL (1.0-4.8) Monocytes # (Auto) 0.6 x10^3/uL (0.0-1.1) Eosinophils # (Auto) 0.0 x10^3/uL (0.0-0.7) Basophils # (Auto) 0.0 x10^3/uL (0.0-0.2) Sodium Level 144 mmol/L (136-145) 143 mmol/L (136-145) Potassium Level 3.6 mmol/L (3.5-5.1) 4.0 mmol/L (3.5-5.1) Chloride Level 109 mmol/L (98-107) 110 mmol/L (98-107) Carbon Dioxide Level 23 mmol/L (21-32) 26 mmol/L (21-32) Anion Gap 12 (6-14) 7 (6-14) Blood Urea Nitrogen 8 mg/dL (7-20) 6 mg/dL (7-20) Creatinine 0.6 mg/dL (0.6-1.0) 0.7 mg/dL (0.6-1.0) Estimated GFR (Cockcroft-Gault) 121.8 101.9 BUN/Creatinine Ratio 13 (6-20) Glucose Level 98 mg/dL (70-99) 92 mg/dL (70-99) Calcium Level 7.7 mg/dL (8.5-10.1) 7.6 mg/dL (8.5-10.1) Total Bilirubin 0.2 mg/dL (0.2-1.0) Aspartate Amino Transf (AST/SGOT) 19 U/L (15-37) Alanine Aminotransferase (ALT/SGPT) 19 U/L (14-59) Alkaline Phosphatase 96 U/L (46-116) Total Protein 6.9 g/dL (6.4-8.2) Albumin 3.1 g/dL (3.4-5.0) Albumin/Globulin Ratio 0.8 (1.0-1.7) Phenytoin (Dilantin) Level 12.1 mcg/mL (10.0-20.0) Phenytoin Last Dose Date 03/23/17 Phenytoin Last Dose Time 1900 Laboratory Tests Test 03/26/17 03:30 Sodium Level 143 mmol/L (136-145) Potassium Level 4.0 mmol/L (3.5-5.1) Chloride Level 110 mmol/L (98-107) Carbon Dioxide Level 26 mmol/L (21-32) Anion Gap 7 (6-14) Blood Urea Nitrogen 6 mg/dL (7-20) Creatinine 0.7 mg/dL (0.6-1.0) Estimated GFR (Cockcroft-Gault) 101.9 Glucose Level 92 mg/dL (70-99) Calcium Level 7.6 mg/dL (8.5-10.1) Assessment Assessment 1. Small-bowel obstruction, status post laparoscopic surgery with lysis of adhesions. 2. Malignant hypertension, likely due to pain, resolved. Blood pressure is much better. 3. Seizure disorder, on Dilantin. 4. Thyroid goiter. 5. Cholelithiasis, asymptomatic. 6. 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 PLAN: On oral Dilantin. Continue pain medications. Tolerating liquid diet. f/u with - outpatient followup for possible ovarian Teratoma. BP fluctuates but improving. Tolerating diet. see me in office in 6 days. Discharge Management - 35 minutes. Plan Plan For more details regarding further plans, please refer to the orders. SHREYA BOURGEOIS MD Mar 26, 2017 11:45
== END 2017-03-26 12:35 | disposition home or self-care (01) | DRG 357 ==
LOC: ER 03:15 → 6 SOUTH 07:00
PROVIDERS: ADMIT Internal Medicine; ATTEND Internal Medicine
PROC: 0WJP0ZZ Inspection of Gastrointestinal Tract, Open Approach (ICD-10-PCS; principal; 2017-03-25)
DX: K56.50 Intestinal adhesions [bands], unspecified as to partial versus complete obstruction (principal); Z68.41 Body mass index [BMI] 40.0-44.9, adult; K80.20 Calculus of gallbladder without cholecystitis without obstruction; E04.9 Nontoxic goiter, unspecified; I10 Essential (primary) hypertension; F17.200 Nicotine dependence, unspecified, uncomplicated; G40.909 Epilepsy, unspecified, not intractable, without status epilepticus; G47.30 Sleep apnea, unspecified; K46.9 Unspecified abdominal hernia without obstruction or gangrene; N83.9 Noninflammatory disorder of ovary, fallopian tube and broad ligament, unspecified; Z80.0 Family history of malignant neoplasm of digestive organs; Z82.49 Family history of ischemic heart disease and other diseases of the circulatory system; Z83.3 Family history of diabetes mellitus; Z86.010 Personal history of colon polyps; E66.9 Obesity, unspecified; K57.90 Diverticulosis of intestine, part unspecified, without perforation or abscess without bleeding; E55.9 Vitamin D deficiency, unspecified; E87.6 Hypokalemia
CPT/HCPCS: 36415; 74177; 76705; 80048; 80053; 80185; 81001; 82553; 83690; 84484; 85025; 87071; 87075; 87086; 87102; 87116; 87205; 88112; 88305; 93005; 99406; J0330; J0360; J0694; J1650; J2370; J2405; J2704; J2710; J3010; J3490; J7030; J7120; Q9967; S0028; J2001

== ENCOUNTER → 2017-05-05 | Outpatient (CLI) | payer BC, MEDICARE ==
[2017-05-05 12:45] LABS: ADD MAN DIFF? NO
[2017-05-05 12:48] LABS: BILIRUBIN,URINE NEGATIVE (NEG); CLARITY,URINE CLEAR; COLOR,URINE YELLOW; GLUCOSE,URINE NEGATIVE (NEG); NITRITE,URINE NEGATIVE (NEG); PROTEIN,URINE NEGATIVE (NEG-TRACE); UROBILINOGEN,URINE 0.2 mg/dL (0.2 mg/dL)
[2017-05-05 12:50] LABS: BASO # 0.1 x10^3/uL (0.0-0.2); BASO % 1 % (0-3); EOS # 0.3 x10^3/uL (0.0-0.7); EOS % 5 % (0-3); HEMATOCRIT 37.8 % (36.0-47.0); HEMOGLOBIN 12.8 g/dL (12.0-15.5); LYMPH # 2.7 x10^3/uL (1.0-4.8); LYMPH % 43 % (24-48); MEAN CORPUSCULAR HEMOGLOBIN 31 pg (25-35); MEAN CORPUSCULAR HGB CONC 34 g/dL (31-37); MEAN CORPUSCULAR VOLUME 92 fL (79-100); MONO # 0.3 x10^3/uL (0.0-1.1); MONO % 5 % (0-9); NEUT % 47 % (31-73); PLATELET COUNT 244 x10^3/uL (140-400); RED BLOOD COUNT 4.13 x10^6/uL (3.50-5.40); RED CELL DISTRIBUTION WIDTH 14.1 % (11.5-14.5); WHITE BLOOD COUNT 6.3 x10^3/uL (4.0-11.0)
[2017-05-05 12:59] LABS: BACTERIA,URINE 0 /HPF (0-FEW); INR 1.1 (0.8-1.1); PARTIAL THROMBOPLASTIN TIME 27 SEC (24-38); PROTHROMBIN TIME PATIENT 13.1 SEC (11.7-14.0); SQUAMOUS EPITHELIAL CELL,UR MOD /LPF; YEAST,URINE PRESENT /HPF
== END | disposition home or self-care (01) ==
LOC: SURGPAT 11:54
DX: Z01.818 Encounter for other preprocedural examination (principal)
CPT/HCPCS: 36415; 81001; 85025; 85610; 85730; 87086

== ENCOUNTER 2017-05-12 08:06 | Observation (INO) | payer BC ==
[~2017-05-12 08:06] MED LIST changes: -DOCU-109 PO; -HYDR-2679 PO; -HYDR-2758 PO; +LIDOCAINE 1% PF 2 ML VIAL. ID; +MORPHINE SULFATE 2 MG/ML DISP.SYRIN. IV; -PHEN100C PO; -PHEN100T2; +fentaNYL PF VIAL 100 MCG/2 ML VIAL IV
[2017-05-12] MEDS ORDERED: MIDAZOLAM HCL/PF 2 MG/2 ML VIAL. ×2 (10:06)
[2017-05-12] MEDS ORDERED: PROPOFOL 20 ML IV ×2 (10:07)
[2017-05-12] MEDS ORDERED: fentaNYL PF VIAL 250 MCG/5 ML VIAL ×2 (10:07)
[2017-05-12] MEDS ORDERED: DEXAMETHASONE SOD PHOS 20 MG/5 ML VIAL. ×2 (10:07)
[2017-05-12] MEDS ORDERED: ROCURONIUM 100 MG/10 ML VIAL. ×2 (10:07)
[2017-05-12] MEDS ORDERED: ONDANSETRON PF 4 MG/2 ML VIAL. ×2 (10:07)
[2017-05-12] MEDS: IV RINGERS,LACTATED 1000ML 1,000 ML IV ×6 (10:40→21:41)
[2017-05-12] MEDS ORDERED: GLYCOPYRROLATE 1 MG/5 ML VIAL. ×2 (12:23)
[2017-05-12] MEDS ORDERED: NEOSTIGMINE METHYLSULFATE 5 MG/5 ML SYRINGE. ×2 (12:23)
[2017-05-12] MEDS ORDERED: SEVOFLURANE > 120 MINUTES. IH ×2 (12:51)
[2017-05-12] MEDS: PROCHLORPERAZINE 10 MG/2 ML VIAL. IV ×2 (12:52)
[2017-05-12] MEDS: fentaNYL PF VIAL 100 MCG/2 ML VIAL IV ×6 (12:53→13:52)
[2017-05-12] MEDS: HYDROmorphone 2 MG/ML VIAL IV ×6 (13:23→13:59)
[2017-05-12] MEDS ORDERED: oxyCODONE/APAP 5/325 1 TAB TABLET PO ×2 (14:15)
[2017-05-12] MEDS ORDERED: ONDANSETRON PF 4 MG/2 ML VIAL. IV ×2 (15:45)
[2017-05-12] MEDS: PHENYTOIN SODIUM EXTENDED 100 MG CAPSULE PO ×2 (21:42)
[2017-05-12] MEDS: oxyCODONE/APAP 5/325 1 TAB TABLET PO ×2 (21:43)
[2017-05-12] MEDS: ONDANSETRON PF 4 MG/2 ML VIAL. IV ×2 (21:44)
[2017-05-13] MEDS: ONDANSETRON PF 4 MG/2 ML VIAL. IV ×2 (04:35)
[2017-05-13] MEDS: IV RINGERS,LACTATED 1000ML 1,000 ML IV ×2 (04:38)
[2017-05-13] MEDS: PHENYTOIN SODIUM EXTENDED 100 MG CAPSULE PO ×2 (08:36)
[2017-05-13] MEDS: oxyCODONE/APAP 5/325 1 TAB TABLET PO ×2 (08:38)
[2017-05-13] MEDS: ALBUTEROL SULFATE 2.5 MG/3 ML NEBU. NEB ×2 (12:40)
== END 2017-05-13 12:30 | disposition home or self-care (01) ==
LOC: SURG 08:06 → 3 NORTH 14:26
DX: N83.201 Unspecified ovarian cyst, right side (principal); N73.6 Female pelvic peritoneal adhesions (postinfective)
CPT/HCPCS: 36415; 86850; 86900; 86901; 86920; 88307; 94640; 94760; 96374; 96376; G0378; G0379; J0690; J0780; J1100; J1170; J2250; J2405; J2704; J2710; J3010; J3490; J7120; J7613

== ENCOUNTER → 2018-01-06 | Outpatient (CLI) | payer MEDICARE, BC ==
[2017-05-13 10:56] VITALS: BP 133/79
[~2018-01-06] MED LIST changes: +DOCU-109 PO; +HYDR-2679 PO; +HYDR-2758 PO; -LIDOCAINE 1% PF 2 ML VIAL. ID; -MORPHINE SULFATE 2 MG/ML DISP.SYRIN. IV; +MULT-245 PO; +OXYC-323 PO; +PHEN100C PO; +PHEN100T2; -fentaNYL PF VIAL 100 MCG/2 ML VIAL IV
--- NOTE | 2018-01-06 15:22 | RAD ---
DATE: 01/06/2018 EXAM: MAMMO RERE SCREENING BILATERAL HISTORY: Routine screening COMPARISON: 04/04/2014 This study was interpreted with the benefit of Computerized Aided Detection (CAD). Breast Density: SCATTERED The breast parenchyma shows scattered fibroglandular densities. Breast parenchyma level B. FINDINGS: 2-D and 3-D tomosynthesis imaging was performed in CC and MLO projections. No new or enlarging breast densities are seen. Minimal benign type calcifications are present. No suspicious microcalcifications have developed. IMPRESSION: Stable mammograms without evidence of malignancy. BI-RADS CATEGORY: 2 BENIGN FINDING(S) RECOMMENDED FOLLOW-UP: 12M 12 MONTH FOLLOW-UP PQRS compliance statement: Patient information was entered into a reminder system with a target due date for the next mammogram. Mammography is a sensitive method for finding small breast cancers, but it does not detect them all and is not a substitute for careful clinical examination. A negative mammogram does not negate a clinically suspicious finding and should not result in delay in biopsying a clinically suspicious abnormality. "Our facility is accredited by the [employer] Mammography Program."
== END | disposition home or self-care (01) ==
LOC: MAMMO 13:04
PROVIDERS: ATTEND Internal Medicine
DX: Z12.31 Encounter for screening mammogram for malignant neoplasm of breast (principal)
CPT/HCPCS: 77063; 77067

== ENCOUNTER → 2019-01-10 | Outpatient (CLI) | payer BC, MEDICARE, OTHER ==
[2017-05-13 10:56] VITALS: BP 133/79
[~2019-01-10] MED LIST changes: -HYDR-2758 PO; +HYDR-2761 PO; -OXYC-323 PO; +OXYC1TAB15 PO
--- NOTE | 2019-01-10 15:37 | RAD ---
DATE: 01/10/2019 EXAM: MAMMO RERE SCREENING BILATERAL HISTORY: Asymptomatic screening mammogram COMPARISON: 01/06/2018, 04/04/2014 This study was interpreted with the benefit of Computerized Aided Detection (CAD). Breast Density: SCATTERED The breast parenchyma shows scattered fibroglandular densities. Breast parenchyma level B. FINDINGS: Bilateral CC and MLO views of the breasts were performed. Bilateral breast tomosynthesis was performed in CC and MLO projections. Right breast: There are no suspicious microcalcifications, masses or areas of architectural distortion. Left breast: There are no suspicious microcalcifications, masses or areas of architectural distortion. Findings are stable from prior mammogram. IMPRESSION: Negative bilateral mammogram. BI-RADS CATEGORY: 1 NEGATIVE RECOMMENDED FOLLOW-UP: 12M 12 MONTH FOLLOW-UP PQRS compliance statement: Patient information was entered into a reminder system with a target due date 01/11/2020 for the next mammogram. Mammography is a sensitive method for finding small breast cancers, but it does not detect them all and is not a substitute for careful clinical examination. A negative mammogram does not negate a clinically suspicious finding and should not result in delay in biopsying a clinically suspicious abnormality. "Our facility is accredited by the [employer] Mammography Program."
== END | disposition home or self-care (01) ==
LOC: MAMMO 08:16
PROVIDERS: ATTEND Internal Medicine
DX: Z12.31 Encounter for screening mammogram for malignant neoplasm of breast (principal)
CPT/HCPCS: 77063; 77067

== ENCOUNTER → 2020-01-15 | Outpatient (CLI) | payer MEDICARE ==
[2017-05-13 10:56] VITALS: BP 133/79
--- NOTE | 2020-01-17 15:38 | RAD ---
DATE: 01/15/2020 12:22 PM EXAM: DIGITAL SCREEN BILAT W/CAD HISTORY: Screening COMPARISON: 01/10/2019 Bilateral CC and MLO views of the breasts were performed. Bilateral breast tomosynthesis was performed in CC and MLO projections. This study was interpreted with the benefit of Computerized Aided Detection (CAD). FINDINGS: Breast Density: FATTY The Breast Parenchyma is primarily fatty replaced. Breast parenchyma level density A. No suspicious masses, microcalcifications or architectural distortion is present to suggest malignancy in either breast. The visualized axillae are unremarkable. IMPRESSION: No mammographic evidence of malignancy. BI-RADS CATEGORY: 1 NEGATIVE RECOMMENDED FOLLOW-UP: 12M 12 MONTH FOLLOW-UP Annual screening mammography is recommended, unless clinically indicated sooner based on symptoms or change in physical exam. PQRS compliance statement: Patient information was entered into a reminder system with a target due date for the next mammogram. Mammography is a sensitive method for finding small breast cancers, but it does not detect them all and is not a substitute for careful clinical examination. A negative mammogram does not negate a clinically suspicious finding and should not result in delay in biopsying a clinically suspicious abnormality. "Our facility is accredited by the [employer] Mammography Program."
== END ==
LOC: MAMMO 12:22
PROVIDERS: ATTEND Internal Medicine
DX: Z12.31 Encounter for screening mammogram for malignant neoplasm of breast (principal)
CPT/HCPCS: 77067

== ENCOUNTER → 2021-01-21 | Outpatient (CLI) | payer MEDICARE ==
[2017-05-13 10:56] VITALS: BP 133/79
--- NOTE | 2021-01-21 16:20 | RAD ---
Bilateral digital screening 2-D and 3-D (digital breast tomosynthesis) mammogram: Reason for examination: Routine screening. Comparison: Mammograms from 01/15/2020 and 01/10/2019. Interpretation was made with the benefit of CAD. FINDINGS: Breast density: Category A. Breast tissue is almost entirely fatty. No suspicious breast mass, malignant appearing calcifications, or architectural distortion is seen. IMPRESSION: No evidence of malignancy. Assessment: BI-RADS 1. Negative. Recommendation: Routine screening mammograms. The patient will receive a letter with the results in the mail. Patient information will be entered i nto the mammography reminder system with a target recall date for the next mammogram. A reminder petey er will be generated. Electronically signed by: Rosalie Barrera MD (01/21/2021 4:18 PM) [id number]
== END ==
LOC: MAMMO 09:47
PROVIDERS: ATTEND Internal Medicine
DX: Z12.31 Encounter for screening mammogram for malignant neoplasm of breast (principal)
CPT/HCPCS: 77063; 77067

== ENCOUNTER 2021-02-05 03:43 | Emergency (ER) | payer MEDICARE ==
[~2021-02-05] VITALS: Ht 167.6 cm; Wt 120.0 kg
[2021-02-05 04:13] LABS: BASO # 0.1 x10^3/uL (0.0-0.2); BASO % 2 % (0-3); EOS # 0.3 x10^3/uL (0.0-0.7); EOS % 4 % (0-3); HEMATOCRIT 42.1 % (36.0-47.0); HEMOGLOBIN 14.2 g/dL (12.0-15.5); LYMPH # 2.4 x10^3/uL (1.0-4.8); LYMPH % 35 % (24-48); MEAN CORPUSCULAR HEMOGLOBIN 31 pg (25-35); MEAN CORPUSCULAR HGB CONC 34 g/dL (31-37); MEAN CORPUSCULAR VOLUME 92 fL (79-100); MONO # 0.3 x10^3/uL (0.0-1.1); MONO % 5 % (0-9); NEUT # 3.7 x10^3/uL (1.8-7.7); NEUT % 54 % (31-73); PLATELET COUNT 225 x10^3/uL (140-400); RED BLOOD COUNT 4.56 x10^6/uL (3.50-5.40); RED CELL DISTRIBUTION WIDTH 13.3 % (11.5-14.5); WHITE BLOOD COUNT 6.9 x10^3/uL (4.0-11.0)
[2021-02-05] MEDS ORDERED: MORPHINE SULFATE 4 MG/ML INJ. IVP ONE (04:15)
[2021-02-05] MEDS ORDERED: ONDANSETRON PF 4 MG/2 ML VIAL. IVP ONE (04:15)
[2021-02-05 04:21] LABS: CALCIUM 8.8 mg/dL (8.5-10.1); CREATININE 0.9 mg/dL (0.6-1.0); GFR 75.3; POTASSIUM 4.2 mmol/L (3.5-5.1)
[2021-02-05 04:26] LABS: ALBUMIN 3.4 g/dL (3.4-5.0); ALBUMIN/GLOBULIN RATIO 0.9 (1.0-1.7); MAGNESIUM 1.9 mg/dL (1.8-2.4); TOTAL BILIRUBIN 0.2 mg/dL (0.2-1.0)
--- NOTE | 2021-02-05 04:36 | RAD ---
XR LUMBAR SPINE 2-3V 02/05/2021 4:14 AM INDICATION: Lower back pain COMPARISON: None available. TECHNIQUE: 3 views of the lumbar spine are provided. FINDINGS/ IMPRESSION: 1. Dextroconvex scoliosis of the lumbar spine centered at L4. 11 mm anterolisthesis of L3 on L4 and 5 mm anterolisthesis of L4 on L5. 2. Mild to moderate disc height loss at L2-L3 and L3-L4 and L5-S1. Moderate facet arthropathy. Mild o sseous neuroforaminal stenosis at L3-L4 and L4-L5 and L5-S1. 3. Mild to moderate osteoporosis of the hips. Electronically signed by: Alisa Magana MD (02/05/2021 4:33 AM) [facility]
[2021-02-05] MEDS ORDERED: methylPREDNISolone SOD SUCC PF 125 MG/2 ML VIAL. IV ONE (04:45)
[2021-02-05] MEDS ORDERED: HYDROmorphone 2 MG/ML VIAL IVP ONE (04:45)
--- NOTE | 2021-02-05 04:52 | PHYS DOC ---
Past Medical History Past Medical History: Seizure, Other (back pain) Past Surgical History: Other Additional Past Surgical Histo: BACK SX Smoking Status: Current Every Day Smoker Alcohol Use: None Drug Use: None General Adult EDM: Chief Complaint: LOWER BACK PAIN OR INJURY HPI: HPI: Patient is a 70 year old female who present to ER for evaluation of low back pain that radiated to her right buttock and right knee area. Symptoms have been going on for several days. Patient denies any bowel or bladder incontinence denies any injury to the back. Patient denies any abdominal pain, no nausea vomiting, no cough, no fever. Patient has history of chronic low back problem in the past, had low back surgery in the past as well. Patient has history of seizure disorder, she is on antiseizure medication. Patient did not take any pain medication for low back problem. The pain is worse with any kind movement of her low back, walking or sitting on her right buttock. Review of Systems: Review of Systems: Constitutional: Denies fever or chills. [] Eyes: Denies change in visual acuity. [] HENT: Denies nasal congestion or sore throat. [] Respiratory: Denies cough or shortness of breath. [] Cardiovascular: Denies chest pain or edema. [] GI: Denies abdominal pain, nausea, vomiting, bloody stools or diarrhea. [] : Denies dysuria. [] Musculoskeletal: Positive for low back pain Integument: Denies rash. [] Neurologic: Denies headache, focal weakness or sensory changes. [] Endocrine: Denies polyuria or polydipsia. [] Lymphatic: Denies swollen glands. [] Psychiatric: Denies depression or anxiety. [] Heart Score: C/O Chest Pain: N/A Risk Factors: Risk Factors: DM, Current or recent (<one month) smoker, HTN, HLP, family history of CAD, obesity. Risk Scores: Score 0 - 3: 2.5% MACE over next 6 weeks - Discharge Home Score 4 - 6: 20.3% MACE over next 6 weeks - Admit for Clinical Observation Score 7 - 10: 72.7% MACE over next 6 weeks - Early Invasive Strategies Current Medications: Current Medications Medications (Trade) Dose Ordered Sig/Gwendolyn Start Time Stop Time Status Last Admin Dose Admin Morphine Sulfate (Morphine Sulfate) 4 mg 1X ONCE 02/05/21 04:15 02/05/21 04:16 DC 02/05/21 04:12 4 MG Ondansetron HCl (Zofran) 4 mg 1X ONCE 02/05/21 04:15 02/05/21 04:16 DC 02/05/21 04:12 4 MG Allergies: Allergies: Allergies Coded Allergies Type Severity Reaction Last Updated Verified No Known Drug Allergies 05/12/17 No Physical Exam: PE: Constitutional: Well developed, well nourished, MODERATE acute distress DUE TO PAIN, non-toxic appearance. [] HENT: Normocephalic, atraumatic, bilateral external ears normal, oropharynx moist, no oral exudates, nose normal. [] Eyes: PERRLA, EOMI, conjunctiva normal, no discharge. [] Neck: Normal range of motion, no tenderness, supple, no stridor. [] Cardiovascular:Heart rate regular rhythm, no murmur [] Lungs & Thorax: Bilateral breath sounds clear to auscultation [] Abdomen: Bowel sounds normal, soft, no tenderness, no masses, no pulsatile masses. [] Skin: Warm, dry, no erythema, no rash. [] Back: There is midline vetebral lumbar area tender to palpation, no bony step off, no CVA tenderness. No saddle anesthesia Extremities: No tenderness, no cyanosis, no clubbing, ROM intact, no edema. [] Neurologic: Alert and oriented X 3, normal motor function, normal sensory function, no focal deficits noted. [] Psychologic: Affect normal, judgement normal, mood normal. [] Current Patient Data: Labs: Laboratory Tests Test 02/05/21 04:05 White Blood Count 6.9 x10^3/uL (4.0-11.0) Red Blood Count 4.56 x10^6/uL (3.50-5.40) Hemoglobin 14.2 g/dL (12.0-15.5) Hematocrit 42.1 % (36.0-47.0) Mean Corpuscular Volume 92 fL (79-100) Mean Corpuscular Hemoglobin 31 pg (25-35) Mean Corpuscular Hemoglobin Concent 34 g/dL (31-37) Red Cell Distribution Width 13.3 % (11.5-14.5) Platelet Count 225 x10^3/uL (140-400) Neutrophils (%) (Auto) 54 % (31-73) Lymphocytes (%) (Auto) 35 % (24-48) Monocytes (%) (Auto) 5 % (0-9) Eosinophils (%) (Auto) 4 % (0-3) H Basophils (%) (Auto) 2 % (0-3) Neutrophils # (Auto) 3.7 x10^3/uL (1.8-7.7) Lymphocytes # (Auto) 2.4 x10^3/uL (1.0-4.8) Monocytes # (Auto) 0.3 x10^3/uL (0.0-1.1) Eosinophils # (Auto) 0.3 x10^3/uL (0.0-0.7) Basophils # (Auto) 0.1 x10^3/uL (0.0-0.2) Sodium Level 141 mmol/L (136-145) Potassium Level 4.2 mmol/L (3.5-5.1) Chloride Level 108 mmol/L (98-107) H Carbon Dioxide Level 27 mmol/L (21-32) Anion Gap 6 (6-14) Blood Urea Nitrogen 12 mg/dL (7-20) Creatinine 0.9 mg/dL (0.6-1.0) Estimated GFR (Cockcroft-Gault) 75.3 BUN/Creatinine Ratio 13 (6-20) Glucose Level 107 mg/dL (70-99) H Calcium Level 8.8 mg/dL (8.5-10.1) Magnesium Level 1.9 mg/dL (1.8-2.4) Total Bilirubin 0.2 mg/dL (0.2-1.0) Aspartate Amino Transferase (AST) 19 U/L (15-37) Alanine Aminotransferase (ALT) 26 U/L (14-59) Alkaline Phosphatase 76 U/L (46-116) Total Protein 7.0 g/dL (6.4-8.2) Albumin 3.4 g/dL (3.4-5.0) Albumin/Globulin Ratio 0.9 (1.0-1.7) L Lipase 90 U/L (73-393) Laboratory Tests 02/05/21 04:05 Laboratory Tests 02/05/21 04:05 Vital Signs: Vital Signs Date Time Temp Pulse Resp B/P (MAP) Pulse Ox O2 Delivery O2 Flow Rate FiO2 02/05/21 04:12 Room Air 02/05/21 03:50 97.8 59 13 218/113 (148) 99 97.8 EKG: EKG: [] Radiology/Procedures: Radiology/Procedures: [facility] [address] [place] [address] IMAGING REPORT Signed PATIENT: MYNOR COELLO ACCOUNT: [id number] : 1950 LOCATION: ER AGE: 70 SEX: F EXAM STATUS: PRE ER ORD. PHYSICIAN: BHAVNA DENG DO REASON: lower back pain PROCEDURE: LUMBAR SPINE 2-3V XR LUMBAR SPINE 2-3V 02/05/2021 4:14 AM INDICATION: Lower back pain COMPARISON: None available. TECHNIQUE: 3 views of the lumbar spine are provided. FINDINGS/ IMPRESSION: 1. Dextroconvex scoliosis of the lumbar spine centered at L4. 11 mm anterolisthesis of L3 on L4 and 5 mm anterolisthesis of L4 on L5. 2. Mild to moderate disc height loss at L2-L3 and L3-L4 and L5-S1. Moderate facet arthropathy. Mild osseous neuroforaminal stenosis at L3-L4 and L4-L5 and L5-S1. 3. Mild to moderate osteoporosis of the hips. Electronically signed by: Carolyn Joy MD (02/05/2021 4:33 AM) [facility] DICTATED and SIGNED BY: CAROLYN JOY MD DATE: 02/05/21 [id number] Course & Med Decision Making: Course & Med Decision Making Pertinent Labs and Imaging studies reviewed. (See chart for details) Patient is a 70-year-old female who present to ER due to low back pain. Patient was in severe pain, her blood pressure was elevated. Patient was given pain medication in the ER, she feel much better, her blood pressure improved significantly. X-ray of her lumbar spine shows some disc problem, her symptoms consistent with acute sciatica. I do not suspect abdominal aortic aneurysm. Patient will be discharged home with pain medication, she will need to follow-up with her family physician for outpatient evaluation with MRI of the lumbar spine. Patient is amenable to plan of care. Patient is here to take her home. David Disclaimer: David Disclaimer: This electronic medical record was generated, in whole or in part, using a voice recognition dictation system. Departure Departure Impression: Primary Impression: Acute right-sided back pain with sciatica Disposition: HOME / SELF CARE / HOMELESS Condition: IMPROVED Referrals: SHREYA BOURGEOIS MD (PCP) Please follow up with your family doctor for outpatient MRI of your lumbar spine this week. Patient Instructions: Back Pain, Adult, Sciatica Additional Instructions: Thank you for visiting our Emergency Department. We appreciate you trusting us with your care. If any additional problems come up don't hesitate to return to visit us. Please follow up with your primary care provider so they can plan additional care if needed and know about the problem that you had. If symptoms worsen come back to the Emergency Department. Any concerning symptoms that start such as chest pain, shortness of air, weakness or numbness on one side of the body, running high fevers or any other concerning symptoms return to the ER. Scripts Prednisone (PREDNISONE) 20 Mg Tablet 2 TAB PO DAILY for 7 Days, #14 TAB Prov: BHAVNA DENG DO 02/05/21 Cyclobenzaprine Hcl (CYCLOBENZAPRINE HCL) 10 Mg Tablet 1 TAB PO TID PRN for MUSCLE SPASMS, #20 TAB Prov: BHAVNA DENG DO 02/05/21 Hydrocodone Bit/Acetaminophen (HYDROCODONE-APAP 5-325 ) 1 Tab Tablet 1 TAB PO PRN Q6HRS PRN for PAIN, #20 TAB 0 Refills Prov: BHAVNA DENG DO 02/05/21 BHAVNA DENG DO Feb 05, 2021 04:52
[2021-02-05 05:15] VITALS: BP 169/83
[2021-02-05] MEDS ORDERED: PRED20TA PO (05:45)
[2021-02-05] MEDS ORDERED: CYCL10TA19 PO (05:45)
[2021-02-05] MEDS ORDERED: HYDR-2761 PO (05:45)
== END 2021-02-05 06:15 | disposition home or self-care (01) ==
LOC: ER 03:43
DX: M54.41 Lumbago with sciatica, right side (principal); R32 Unspecified urinary incontinence; M48.061 Spinal stenosis, lumbar region without neurogenic claudication; F17.200 Nicotine dependence, unspecified, uncomplicated
CPT/HCPCS: 36415; 72100; 80053; 83690; 83735; 85025; 96374; 96375; 99284; J1170; J2270; J2405; J2930

== ENCOUNTER 2021-02-07 10:37 | Emergency (ER) | payer MEDICARE ==
[~2021-02-07] VITALS: Ht 167.6 cm; Wt 120.4 kg
[~2021-02-07 10:37] MED LIST changes: +CYCL10TA19 PO; +PRED20TA PO
[2021-02-07 11:15] VITALS: BP 155/94
[2021-02-07] MEDS ORDERED: fentaNYL PF VIAL 100 MCG/2 ML VIAL IVP ONE (11:30)
[2021-02-07] MEDS ORDERED: methylPREDNISolone SOD SUCC PF 125 MG/2 ML VIAL. IV ONE (11:30)
--- NOTE | 2021-02-07 11:49 | PHYS DOC ---
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 Low back with sharp and shooting. Patient is rating her pain a 10 out of 10. She states she that she was prescribed hydrocodone and cyclobenzaprine. She states she took it this morning but is not helping. Patient denies loss of bowel bladder, numbness or tingling, focal weakness. Patient was able to walk from the wheelchair to the bed on her own. Patient has a history of smoking and lumbar stenosis. She denies any injury. 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 [] Eyes: Denies change in visual acuity. [] HENT: Denies nasal congestion or sore throat. [] Respiratory: Denies cough or shortness of breath. [] Cardiovascular: Denies chest pain or edema. [] GI: Denies abdominal pain, nausea, vomiting, bloody stools or diarrhea. [] : Denies dysuria. [] Musculoskeletal: +back pain or denies joint pain. + Sharp shooting pain down the back of right leg into knee [] Integument: Denies rash. [] Neurologic: Denies headache, focal weakness or sensory changes. [] Endocrine: Denies polyuria or polydipsia. [] Lymphatic: Denies swollen glands. [] Psychiatric: Denies depression or anxiety. [] (DEB MARCIAL [employer] WORKER) Heart Score: C/O Chest Pain: No (DEB MARCIAL [employer] WORKER) Current Medications: Current Medications Medications (Trade) Dose Ordered Sig/Gwendolyn Start Time Stop Time Status Last Admin Dose Admin Fentanyl Citrate (Fentanyl 2ml Vial) 50 mcg 1X ONCE 02/07/21 11:30 02/07/21 11:31 DC Methylprednisolone Sodium Succinate (SOLU-Medrol 125MG VIAL) 125 mg 1X ONCE 02/07/21 11:30 02/07/21 11:31 DC (ALBERTINAUSDEB Olivia [employer] WORKER) Allergies: Allergies: Allergies Coded Allergies Type Severity Reaction Last Updated Verified No Known Drug Allergies 05/12/17 No (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 [] HENT: Normocephalic, atraumatic, bilateral external ears normal, oropharynx moist, no oral exudates, nose normal. [] Eyes: PERRLA, EOMI, conjunctiva normal, no discharge. [] Neck: Normal range of motion, no tenderness, supple, no stridor. [] Cardiovascular:Heart rate regular rhythm, no murmur [] Lungs & Thorax: Bilateral breath sounds clear to auscultation [] Abdomen: Bowel sounds normal, soft, no tenderness, no masses, no pulsatile masses. [] Skin: Warm, dry, no erythema, no rash. [] Back: No tenderness, no CVA tenderness. [] Extremities: No tenderness, no cyanosis, no clubbing, ROM intact, no edema. [] Neurologic: Alert and oriented X 3, normal motor function, normal sensory function, no focal deficits noted. [] Psychologic: Affect normal, judgement normal, mood normal. [] Normal physical exam (DEB MARCIAL APRN) Current Patient Data: Vital Signs: Vital Signs Date Time Temp Pulse Resp B/P (MAP) Pulse Ox O2 Delivery O2 Flow Rate FiO2 02/07/21 11:15 97.5 64 20 155/94 (114) 97 Room Air 97.5 [facility]) EKG: EKG: [] [facility]) Radiology/Procedures: Radiology/Procedures: [] Impression: [facility] [address] [place] [address] IMAGING REPORT Signed PATIENT: MYNOR COELLO ACCOUNT: [id number] : 1950 LOCATION: ER AGE: 70 SEX: F EXAM STATUS: REG ER ORD. PHYSICIAN: DEB MARCIAL APRN REASON: WORSENING SCIATIC PAIN PROCEDURE: CT LUMBAR SPINE WO CONTRAST CT LUMBAR SPINE WO History: Worsening sciatic pain. Technique: Noncontrast CT was performed of the lumbar spine. Multiplanar reconstructions were performed. Comparison: Lumbar spine radiographs 02/05/2021. CT abdomen and pelvis 03/24/2017 Findings: There are 5 nonrib-bearing lumbar type vertebral bodies. Vertebral body heights are maintained. No acute fracture is identified. There is minimal dextroconvex curvature in the lumbar spine. Mild grade 1 anterolisthesis of L3 on L4. At the carotid calcifications of the aorta. Mild degenerative changes of the sacroiliac joints. T12-L1: Mild facet hypertrophy causes mild right neural foraminal narrowing. L1-L2: Mild bilateral facet hypertrophy causes mild bilateral foraminal stenosis. L2-L3: Mild disc space narrowing and moderate bilateral facet hypertrophy cause moderate canal stenosis to approximately 5 mm and moderate to severe bilateral foraminal stenosis. L3-L4: Moderate disc height loss, severe bilateral facet hypertrophy, and circumferential disc bulge asymmetric to the right foraminal foraminal cause spinal canal narrowing to approximately 6 mm severe right, moderate to severe left neural foraminal stenosis. L4-L5: Mild to moderate disc height loss and severe bilateral facet hypertrophy cause mild spinal canal narrowing and severe left, moderate right neural foraminal stenosis. L5-S1: Severe disc height loss and bilateral facet hypertrophy cause severe left, moderate to severe right neural foraminal stenosis. Impression: 1. Advanced multilevel lumbar facet and disc disease causing multilevel canal and foraminal stenoses with potential for symptomatic radiculopathy at multiple levels. Correlate with nature of radiculopathy and consider lumbar spine MRI for further evaluation. Exposure: One or more of the following individualized dose reduction techniques were utilized for this examination: 1. Automated exposure control 2. Adjustment of the mA and/or kV according to patient size 3. Use of iterative reconstruction technique. Electronically signed by: Juma Miller MD (02/07/2021 12:51 PM) [id number] DICTATED and SIGNED BY: JUMA MILLER MD DATE: 02/07/21 [id number] 0 (DEB MARCIAL APRN) Course & Med Decision Making: Course & Med Decision Making Pertinent Labs and Imaging studies reviewed. (See chart for details) See HPI. Alert and oriented x4. Ambulatory steady gait. Speaks in full clear sentences. No extremity edema. Full sensations intact. Neurologically intact. Moving all extremities equally equal strengths. No focal bony spinal ten derness. No tenderness to her leg. Pedal pulse strong and present. Skin pink warm and dry. Cap refill less than 2 seconds. Patient states she is not been taking it and a anti-inflammatory. She is not on blood thinners. No saddle paresthesias. [] (DEB MARCIAL APRN) Course & Med Decision Making I have participated in the care of this patient and I have reviewed and agree with all pertinent clinical information above including history, exam, and recommendations. David Solo DO (DAVID SOLO DO) David Disclaimer: David Disclaimer: This electronic medical record was generated, in whole or in part, using a voice recognition dictation system. (DEB MARCIAL APRN) Departure Departure Impression: Primary Impression: Sciatica of right side Disposition: HOME / SELF CARE / HOMELESS Condition: STABLE Referrals: SHREYA BOURGEOIS MD (PCP) Patient Instructions: Sciatica with [facility] Additional Instructions: Follow-up with primary care provider soon as possible. Take medication as prescribed and with food. May worsen these medications will make you drowsy. Do not drive while you are on them. If you lose control of your bowel or bladder or have focal weakness or numbness and tingling return emergency room. Scripts Diclofenac Sodium (DICLOFENAC SODIUM) 50 Mg Tablet. 1 TAB PO BID, #14 TAB 1 Refill Prov: DEB MARCIAL APRN 02/07/21 DEB MARCIAL APRN Feb 07, 2021 11:49 DAVID SOLO DO Feb 07, 2021 18:04
--- NOTE | 2021-02-07 12:53 | RAD ---
CT LUMBAR SPINE WO History: Worsening sciatic pain. Technique: Noncontrast CT was performed of the lumbar spine. Multiplanar reconstructions were perform ed. Comparison: Lumbar spine radiographs 02/05/2021. CT abdomen and pelvis 03/24/2017 Findings: There are 5 nonrib-bearing lumbar type vertebral bodies. Vertebral body heights are maintained. No ac lyndsey fracture is identified. There is minimal dextroconvex curvature in the lumbar spine. Mild grade 1 anterolisthesis of L3 on L4. At the carotid calcifications of the aorta. Mild degenerative changes of the sacroiliac joints. T12-L1: Mild facet hypertrophy causes mild right neural foraminal narrowing. L1-L2: Mild bilateral facet hypertrophy causes mild bilateral foraminal stenosis. L2-L3: Mild disc space narrowing and moderate bilateral facet hypertrophy cause moderate canal stenos is to approximately 5 mm and moderate to severe bilateral foraminal stenosis. L3-L4: Moderate disc height loss, severe bilateral facet hypertrophy, and circumferential disc bulge asymmetric to the right foraminal foraminal cause spinal canal narrowing to approximately 6 mm severe right, moderate to severe left neural foraminal stenosis. L4-L5: Mild to moderate disc height loss and severe bilateral facet hypertrophy cause mild spinal can al narrowing and severe left, moderate right neural foraminal stenosis. L5-S1: Severe disc height loss and bilateral facet hypertrophy cause severe left, moderate to severe right neural foraminal stenosis. Impression: 1. Advanced multilevel lumbar facet and disc disease causing multilevel canal and foraminal stenoses with potential for symptomatic radiculopathy at multiple levels. Correlate with nature of radiculopa thy and consider lumbar spine MRI for further evaluation. Exposure: One or more of the following individualized dose reduction techniques were utilized for thi s examination: 1. Automated exposure control 2. Adjustment of the mA and/or kV according to patient size 3. Use of iterative reconstruction technique. Electronically signed by: Juma Ambrosio MD (02/07/2021 12:51 PM) [id number]
[2021-02-07 13:41] LABS: BASO # 0.1 x10^3/uL (0.0-0.2); BASO % 1 % (0-3); EOS # 0.1 x10^3/uL (0.0-0.7); EOS % 1 % (0-3); HEMATOCRIT 45.4 % (36.0-47.0); HEMOGLOBIN 14.8 g/dL (12.0-15.5); LYMPH # 3.8 x10^3/uL (1.0-4.8); LYMPH % 47 % (24-48); MEAN CORPUSCULAR HEMOGLOBIN 33 pg (25-35); MEAN CORPUSCULAR HGB CONC 33 g/dL (31-37); MONO # 0.4 x10^3/uL (0.0-1.1); MONO % 5 % (0-9); NEUT # 3.7 x10^3/uL (1.8-7.7); NEUT % 46 % (31-73); PLATELET COUNT 186 x10^3/uL (140-400); RED BLOOD COUNT 4.52 x10^6/uL (3.50-5.40)
[2021-02-07 13:42] LABS: MEAN CORPUSCULAR VOLUME 96 fL (79-100); RED CELL DISTRIBUTION WIDTH 14.5 % (11.5-14.5)
[2021-02-07 13:47] LABS: CALCIUM 8.9 mg/dL (8.5-10.1); CREATININE 0.8 mg/dL (0.6-1.0); GFR 86.3; POTASSIUM 4.3 mmol/L (3.5-5.1)
[2021-02-07 13:53] LABS: ALBUMIN 3.5 g/dL (3.4-5.0); ALBUMIN/GLOBULIN RATIO 1.1 (1.0-1.7); TOTAL BILIRUBIN 0.2 mg/dL (0.2-1.0); TOTAL PROTEIN 6.6 g/dL (6.4-8.2)
[2021-02-07] MEDS ORDERED: DICL50TA4 PO (13:56)
== END 2021-02-07 14:11 | disposition home or self-care (01) ==
LOC: ER 10:37
DX: M54.41 Lumbago with sciatica, right side (principal); F17.200 Nicotine dependence, unspecified, uncomplicated
CPT/HCPCS: 36415; 72131; 80053; 85025; 96374; 96375; 99284; J2930; J3010

== ENCOUNTER 2021-02-15 00:35 | Inpatient (IN) | payer MEDICARE ==
[~2021-02-15] VITALS: Ht 167.6 cm; Wt 115.7 kg
[2021-02-15] VITALS (7 sets, daily range): BP systolic 137–207; BP diastolic 94–109
[~2021-02-15 00:35] MED LIST changes: +DICL50TA4 PO
[2021-02-15] MEDS ORDERED: DEXAMETHASONE SOD PHOS 4 MG/ML VIAL IVP ONE ×2 (01:15→09:00)
[2021-02-15] MEDS ORDERED: MORPHINE SULFATE 10 MG/ML VIAL. IVP ONE (01:15)
--- NOTE | 2021-02-15 01:26 | PHYS DOC ---
Past Medical History Past Medical History: Seizure, Other Additional Past Medical Histor: LUMBAR STENOSIS Past Surgical History: Other Additional Past Surgical Histo: BACK SX Smoking Status: Current Every Day Smoker Alcohol Use: None Drug Use: None General Adult EDM: Chief Complaint: BACK PAIN - NO INJURY HPI: HPI: Patient is a 70 year old female with history of low back pain, lumbar facet arthropathy, lumbar stenosis who presents with severe right-sided back pain with radiculopathy. States that it starts behind the right hip and crosses medially across the knee. It is a burning/electric sensation. Feels shooting and is worse with flexing her right hip. States that the pain has been much worse over the past week. Was seen in the emergency department and has been taking hydrocodone, Flexeril, and diclofenac regularly without relief. She is being referred to a pain specialist by her PCP. She states that she is now having to walk with a walker, and feels like she is "dragging" her right leg behind her. States that she does feel weak and has a numbness sensation as well. Denies bowel/bladder incontinence or retention. Denies saddle anesthesia. No fever/chills. Denies immunosuppression. She has had a remote lumbar back surgery, but she is unclear what was done. CT from last ED visit: Findings: There are 5 nonrib-bearing lumbar type vertebral bodies. Vertebral body heights are maintained. No acute fracture is identified. There is minimal dextroconvex curvature in the lumbar spine. Mild grade 1 anterolisthesis of L3 on L4. At the carotid calcifications of the aorta. Mild degenerative changes of the sacroiliac joints. T12-L1: Mild facet hypertrophy causes mild right neural foraminal narrowing. L1-L2: Mild bilateral facet hypertrophy causes mild bilateral foraminal stenosis. L2-L3: Mild disc space narrowing and moderate bilateral facet hypertrophy cause moderate canal stenosis to approximately 5 mm and moderate to severe bilateral foraminal stenosis. L3-L4: Moderate disc height loss, severe bilateral facet hypertrophy, and circumferential disc bulge asymmetric to the right foraminal foraminal cause spinal canal narrowing to approximately 6 mm severe right, moderate to severe left neural foraminal stenosis. L4-L5: Mild to moderate disc height loss and severe bilateral facet hypertrophy cause mild spinal canal narrowing and severe left, moderate right neural foraminal stenosis. L5-S1: Severe disc height loss and bilateral facet hypertrophy cause severe left, moderate to severe right neural foraminal stenosis. Impression: 1. Advanced multilevel lumbar facet and disc disease causing multilevel canal and foraminal stenoses with potential for symptomatic radiculopathy at multiple levels. Correlate with nature of radiculopathy and consider lumbar spine MRI for further evaluation. Review of Systems: Review of Systems: Constitutional: Denies fever or chills. [] Eyes: Denies change in visual acuity. [] HENT: Denies nasal congestion or sore throat. [] Respiratory: Denies cough or shortness of breath. [] Cardiovascular: Denies chest pain or edema. [] GI: Denies abdominal pain, nausea, vomiting, bloody stools or diarrhea. [] : Denies dysuria. [] Musculoskeletal: Reports lumbar back pain and right-sided radiculopathy Integument: Denies rash. [] Neurologic: Denies headache. Reports right leg weakness and numbness. Endocrine: Denies polyuria or polydipsia. [] Lymphatic: Denies swollen glands. [] Psychiatric: Denies depression or anxiety. [] Heart Score: C/O Chest Pain: No Risk Factors: Risk Factors: DM, Current or recent (<one month) smoker, HTN, HLP, family history of CAD, obesity. Risk Scores: Score 0 - 3: 2.5% MACE over next 6 weeks - Discharge Home Score 4 - 6: 20.3% MACE over next 6 weeks - Admit for Clinical Observation Score 7 - 10: 72.7% MACE over next 6 weeks - Early Invasive Strategies Current Medications: Current Medications Medications (Trade) Dose Ordered Sig/[facility] Start Time Stop Time Status Last Admin Dose Admin Dexamethasone Sodium Phosphate (Decadron) 4 mg 1X ONCE 02/15/21 01:15 02/15/21 01:16 Morphine Sulfate (Morphine Sulfate) 6 mg 1X ONCE 02/15/21 01:15 02/15/21 01:16 Allergies: Allergies: Allergies Coded Allergies Type Severity Reaction Last Updated Verified No Known Drug Allergies 05/12/17 No Physical Exam: PE: Constitutional: Well developed, well nourished, no acute distress, non-toxic appearance. [] HENT: Normocephalic, atraumatic, bilateral external ears normal, oropharynx moist, no oral exudates, nose normal. [] Eyes: PERRLA, EOMI, conjunctiva normal, no discharge. [] Neck: Normal range of motion, no tenderness, supple, no stridor. [] Cardiovascular:Heart rate regular rhythm, no murmur [] Lungs & Thorax: Bilateral breath sounds clear to auscultation [] Abdomen: Bowel sounds normal, soft, no tenderness, no masses, no pulsatile masses. [] Skin: Warm, dry, no erythema, no rash. [] Back: No tenderness, no CVA tenderness. [] Extremities: No tenderness, no cyanosis, no clubbing, ROM intact, no edema. [] Neurologic: Alert and oriented X 3, Specifically 5/5 strength bilaterally in: L1-4: adduction of thighs L3-4: extension at knee L4-5: dorsiflexion of ankle (initially hesitant, but eventually gives 5/5 effort on the right) L5: Extension of toes S1-S2: Plantarflexion of ankle Psychologic: Affect normal, judgement normal, mood normal. [] Current Patient Data: Vital Signs: Vital Signs Date Time Temp Pulse Resp B/P (MAP) Pulse Ox O2 Delivery O2 Flow Rate FiO2 02/15/21 00:46 97.7 74 24 246/118 (160) 98 97.7 EKG: EKG: [] Radiology/Procedures: Radiology/Procedures: [] Course & Med Decision Making: Course & Med Decision Making Pertinent Labs and Imaging studies reviewed. (See chart for details) Patient is 70-year-old female with history of lumbar stenosis, severe lumbar degenerative changes, chronic back pain who presents with acute exacerbation of right-sided radicular back pain. Has been worse for the past week. She states that it is weak and numb stating that it is "dragging" behind her. On examination she has no focal weakness, but is exceedingly uncomfortable. She has been having pain refractory to hydrocodone, NSAIDs, Flexeril as an outpatient. She had a recent CT scan that showed multilevel degenerative changes, that could be contributing to nerve root compression, with recommended MRI follow-up. History/Exam is most consistent with an L4 radiculopathy. with failing outpatient management feel that she would benefit from inpatient pain control, physical therapy evaluation, and a routine MRI of the lumbar spine (which I have ordered). I discussed the case with the patient's primary care doctor, Dr. Bourgeois, who agrees with plan of care. Admission orders placed. Dragon Disclaimer: Dragon Disclaimer: This electronic medical record was generated, in whole or in part, using a voice recognition dictation system. Departure Departure Impression: Primary Impression: Lumbar radiculopathy Disposition: ADMITTED INPATIENT Admitting Physician: Shreya Bourgeois Condition: STABLE Referrals: SHREYA BOURGEOIS MD (PCP) TONY DASILVA MD Feb 15, 2021 01:26
[2021-02-15] MEDS ORDERED: LIDOCAINE (700MG/PATCH) PATCH. TD ONE (01:30)
[2021-02-15] MEDS: MORPHINE SULFATE 4 MG/ML INJ. IVP PRN ×2 (02:05→04:22)
--- NOTE | 2021-02-15 03:41 | NUR ---
0300, patient arrived to unit ,admitted to room 430, plan of care discussed with patient. patient verbalized understanding.
[2021-02-15] MEDS ORDERED: AMLO-186 PO (03:45)
[2021-02-15] MEDS ORDERED: HYDR12.58 PO (03:45)
[2021-02-15] MEDS ORDERED: PHEN100C PO (08:56)
[2021-02-15] MEDS ORDERED: FLU VACC QUAD 21-22 (6MOS+) PF 0.5 ML SYRINGE. VAX IM ONE (09:00)
[2021-02-15] MEDS ORDERED: PHENYTOIN SODIUM EXTENDED 100 MG CAPSULE PO SCH (10:45)
[2021-02-15 11:03] LABS: BASO % 0 % (0-3); EOS % 0 % (0-3); HEMATOCRIT 43.5 % (36.0-47.0); HEMOGLOBIN 14.7 g/dL (12.0-15.5); LYMPH # 0.8 x10^3/uL (1.0-4.8); LYMPH % 11 % (24-48); MEAN CORPUSCULAR HEMOGLOBIN 31 pg (25-35); MEAN CORPUSCULAR HGB CONC 34 g/dL (31-37); MEAN CORPUSCULAR VOLUME 93 fL (79-100); MONO # 0.1 x10^3/uL (0.0-1.1); MONO % 2 % (0-9); NEUT # 6.7 x10^3/uL (1.8-7.7); NEUT % 87 % (31-73); PLATELET COUNT 252 x10^3/uL (140-400); RED BLOOD COUNT 4.68 x10^6/uL (3.50-5.40); RED CELL DISTRIBUTION WIDTH 13.2 % (11.5-14.5); WHITE BLOOD COUNT 7.7 x10^3/uL (4.0-11.0)
[2021-02-15] MEDS: hydroCHLOROthiazide 12.5 MG CAPSULE PO SCH (11:12)
[2021-02-15] MEDS: HYDROcodone/APAP 7.5/325MG 1 TAB TABLET PO PRN (11:13)
[2021-02-15 11:16] LABS: ALBUMIN 3.5 g/dL (3.4-5.0); ALBUMIN/GLOBULIN RATIO 0.9 (1.0-1.7); ALK PHOS 78 U/L (46-116); ALT (SGPT) 29 U/L (14-59); ANION GAP 5 (6-14); AST (SGOT) 14 U/L (15-37); BLOOD UREA NITROGEN 11 mg/dL (7-20); BUN/CREATININE RATIO 12 (6-20); CARBON DIOXIDE 27 mmol/L (21-32); CHLORIDE 105 mmol/L (98-107); CREATININE 0.9 mg/dL (0.6-1.0); GFR 75.3; GLUCOSE 133 mg/dL (70-99); POTASSIUM 4.5 mmol/L (3.5-5.1); SODIUM 137 mmol/L (136-145); TOTAL BILIRUBIN 0.2 mg/dL (0.2-1.0); TOTAL PROTEIN 7.2 g/dL (6.4-8.2)
[2021-02-15 11:32] LABS: PHENY < 0.5 mcg/mL (10.0-20.0)
--- NOTE | 2021-02-15 12:08 | PDOC ---
Provider Note Date of Service: DATE: 02/15/21 TIME: 12:07 Provider Note H&P dictated #[id number] Justifications for Admission Other Justification SHREYA BOURGEOIS MD Feb 15, 2021 12:07
--- NOTE | 2021-02-15 12:31 | NUR ---
Attempted to call consult in to Dr. Cheek, answering service stated they are not taking messages for physician. Physician will see patient Wednesday.
[2021-02-15] MEDS ORDERED: LEVE500T56 PO (12:35)
--- NOTE | 2021-02-15 12:37 | DISCH ---
DISCHARGE INSTRUCTIONS Condition on Discharge Condition on Discharge: Stable Activity After Discharge Activity Instructions for Disc: Activity as tolerated, Avoid exertion Lifting Instructions after Dis: No heavy lifting Driving Instructions after Dis: Do not drive Weight Bearing Status after Di: As tolerated Diet after Discharge Diet after Discharge: Cardiac Additional Diet Restrictions: resume home diet Wound Incision Care Wound/Incision Care: May get incision wet Contacting the DRKathleen after DC Call your doctor for: Concerns you may have Follow-Up Follow up with: Dr. Shreya Bourgeois in 5 days Follow Up With: Dr. Cheek Treatment/Equipment after DC Adaptive Equipment Issued: None Comment: Walk with walker/cane. SHREYA BOURGEOIS MD Feb 15, 2021 12:37
[2021-02-15] MEDS: levETIRAcetam 500 MG TABLET PO SCH ×2 (12:45→20:28)
[2021-02-15] MEDS: ENOXAPARIN 40 MG/0.4 ML SYRINGE. SQ SCH ×2 (12:46→20:28)
--- NOTE | 2021-02-15 12:56 | HP ---
DATE OF SERVICE: 02/15/2021 ADMIT DATE: 02/15/2021 HISTORY OF PRESENT ILLNESS: This 70-year-old female who has a history of lumbar spinal stenosis and who has had previous lumbar diskectomy at L3-4 and L4-5 level, started having severe low back pain. She has pain that radiates to her right lower extremity and she started having increasing weakness as well as sharp shooting pains with tingling and numbness and weakness in the right lower extremity. She was seen here at the emergency room a week ago and CT scan of lumbar spine showed advanced multilevel lumbar facet and disk disease causing multilevel canal and foraminal stenosis at multiple levels. An MRI was recommended. The patient was seen in the office. The patient has been taking hydrocodone, muscle relaxers, but her symptoms got much worse and yesterday because of the severe pain and weakness, she came to the emergency room and was admitted for further management. SYSTEMS REVIEW: The patient is having difficulty getting up and walking. Her pain is slightly better than yesterday, but continues to have a lot of symptoms of right lower extremity pain and tingling and numbness and weakness. She denies any nausea, vomiting, chest pains, abdominal pain, palpitations, dysuria or urinary or bowel incontinence. Other systems reviewed and are negative. PAST MEDICAL HISTORY: The patient has a history of seizure disorder, thyroid goiter with bilateral thyroid nodules, one of them was hyperfunctioning nodule, diverticulosis, colonic polyps, sleep apnea, obesity, vitamin D deficiency and B12 deficiency. She has hypertension. PAST SURGICAL HISTORY: Includes a colonoscopy with biopsy and had injection of the tendon sheath ligament. She also had small-bowel obstruction due to adhesions and had laparoscopic exploration and lysis of adhesions. This was in 03/2017. She also had laparoscopic surgery including salpingo-oophorectomy. She had a lumbar diskectomy at L3-4 and L4-[address] Cheek. SOCIAL HISTORY: The patient has a history of smoking. No history of alcoholism or drug abuse. FAMILY HISTORY: Brother had myocardial infarction and diabetes. Another brother had colon cancer and CVA at age 54 and also has seizures post-CVA. Father had coronary artery disease. Mother, diabetes mellitus and coronary artery disease. Sister had cerebral aneurysm. ALLERGIES: None known any. MEDICATIONS: Reviewed and reconciled. The patient thinks that she is on Dilantin 500 mg twice daily, but it does not sound right. We will have staff check with the pharmacy. PHYSICAL EXAMINATION: VITAL SIGNS: Temperature 97.8, pulse 82 per minute, respirations 16 per minute, blood pressure 137/96 mmHg. On admission, her blood pressure was 212/95 and 216/95 likely due to severe pain. GENERAL: The patient is alert, oriented and not in acute distress. EYES: Pupils reactive to light. Conjunctivae pink. Sclerae white. HENT: Unremarkable. NECK: Supple. JVP normal. No thyromegaly. Trachea midline. LUNGS: Decreased breath sounds at bases. CARDIOVASCULAR: S1, S2, regular. ABDOMEN: Soft, nontender, no guarding, no rigidity. Bowel sounds present. EXTREMITIES: No edema, no cyanosis, no calf tenderness. CENTRAL NERVOUS SYSTEM: The patient is alert and oriented. Lumbar spine, the patient has mild tenderness, unable to walk her and check range of motion. Straight leg raising test is positive at 30 degrees on the right side. Reflexes bilaterally equal. Power may be slightly decreased in the right lower extremity, difficult to assess due to pain. LABORATORY DATA: Sodium 137, potassium 4.5, BUN 11, creatinine 0.9, glucose 133, AST 14, ALT 29, albumin 3.5. WBC count 7.7, hemoglobin 14.7, platelet count 252,000. Dilantin level was less than 0.5. IMPRESSION: 1. Acute lumbar radiculopathy, right side. 2. Hypertension, not controlled. Initially, the patient was in hypertensive crisis, but it may be due to pain. Now, the blood pressure is better controlled. 3. Seizure disorder, stable. 4. Lumbar spinal stenosis with previous lumbar laminectomy at L3-4, L4-5 level. 5. Thyroid goiter. 6. History of vitamin B12 deficiency. 7. History of vitamin D deficiency. PLAN: Consult Dr. Talbot for rehab evaluation and management. Consult Dr. Cheek for neurosurgical evaluation and management. MRI of the lumbar spine has been ordered by the ER physician. Start PT, OT. Continue Flexeril, increase the dose of hydrocodone. Continue IV morphine for pain control. The patient's condition is still not stable enough to be discharged home. Continue present treatment. If pain control is improving tomorrow, we will discharge her home tomorrow. For details, please refer to the orders. PBP/NIS : BRENDA/nts TID: [id number]
[2021-02-16] VITALS (7 sets, daily range): BP systolic 140–193; BP diastolic 78–133
[2021-02-16] MEDS: CYCLOBENZAPRINE 10 MG TABLET. PO PRN ×2 (02:51→16:36)
[2021-02-16] MEDS: HYDROcodone/APAP 7.5/325MG 1 TAB TABLET PO PRN ×2 (05:08→16:36)
[2021-02-16] MEDS: MORPHINE SULFATE 4 MG/ML INJ. IVP PRN ×2 (07:30→14:42)
[2021-02-16] MEDS: hydroCHLOROthiazide 12.5 MG CAPSULE PO SCH (08:01)
[2021-02-16] MEDS: levETIRAcetam 500 MG TABLET PO SCH ×2 (08:02→21:19)
[2021-02-16] MEDS: MULTIVITAMIN with MINERAL TABLET. PO SCH (08:02)
[2021-02-16] MEDS: ENOXAPARIN 40 MG/0.4 ML SYRINGE. SQ SCH ×2 (08:03→21:22)
[2021-02-16] MEDS ORDERED: hydrALAZINE 20 MG/ML VIAL. IVP PRN (10:30)
--- NOTE | 2021-02-16 10:34 | PDOC ---
PROGRESS NOTES Date of Service: DATE: 02/16/21 TIME: 10:32 Subjective Subjective c/o pain rt leg Objective Objective Vital Signs Date Time Temp Pulse Resp B/P (MAP) Pulse Ox O2 Delivery O2 Flow Rate FiO2 02/16/21 09:56 75 141/79 (99) 02/16/21 07:30 Room Air 02/16/21 07:00 97.4 17 97 97.4 Intake and Output 02/16/21 07:00 Intake Total 620 ml Balance 620 ml Intake Oral 620 ml # Voids 2 Physical Exam Abdomen: Soft Heart: Regular rate, Normal S1, Normal S2 Extremities: No clubbing General: Alert HEENT: Atraumatic Lungs: Clear to auscultation MUSCULOSKELETAL: No swelling, Other (rt sciatica) Neck: No JVD Neuro: Normal speech Psych/Mental Status: Mental status NL Skin: No breakdown Diagnosis Problem List Problems Medical Problems: (1) Lumbar radiculopathy Status: Acute Assessment Assessment Problems Medical Problems: (1) Lumbar radiculopathy Status: Acute IMPRESSION: 1. Acute lumbar radiculopathy, right side. 2. Hypertension, not controlled. Initially, the patient was in hypertensive crisis, but it may be due to pain. Now, the blood pressure is better controlled. 3. Seizure disorder, stable. 4. Lumbar spinal stenosis with previous lumbar laminectomy at L3-4, L4-5 level. 5. Thyroid goiter. 6. History of vitamin B12 deficiency. 7. History of vitamin D deficiency. PLAN: MRI today Neuro surgery consult pending. pt/ot/rehab iv morphine+flexeril+lortab add lidocaine patch prn BP meds Consult Dr. Talbot for rehab evaluation and management. Consult Dr. Cheek for neurosurgical evaluation and management. MRI of the lumbar spine has been ordered by the ER physician. Start PT, OT. Continue Flexeril, increase the dose of hydrocodone. Continue IV morphine for pain control. The patient's condition is still not stable enough to be discharged home. Continue present treatment. If pain control is improving tomorrow, we will discharge her home tomorrow. For details, please refer to the orders. Plan Plan of Care Problems Medical Problems: (1) Lumbar radiculopathy Status: Acute Comment Review of Relevant I have reviewed the following items juancarlos (where applicable) has been applied. Labs Laboratory Tests Test 02/15/21 10:55 White Blood Count 7.7 x10^3/uL (4.0-11.0) Red Blood Count 4.68 x10^6/uL (3.50-5.40) Hemoglobin 14.7 g/dL (12.0-15.5) Hematocrit 43.5 % (36.0-47.0) Mean Corpuscular Volume 93 fL (79-100) Mean Corpuscular Hemoglobin 31 pg (25-35) Mean Corpuscular Hemoglobin Concent 34 g/dL (31-37) Red Cell Distribution Width 13.2 % (11.5-14.5) Platelet Count 252 x10^3/uL (140-400) Neutrophils (%) (Auto) 87 % (31-73) Lymphocytes (%) (Auto) 11 % (24-48) Monocytes (%) (Auto) 2 % (0-9) Eosinophils (%) (Auto) 0 % (0-3) Basophils (%) (Auto) 0 % (0-3) Neutrophils # (Auto) 6.7 x10^3/uL (1.8-7.7) Lymphocytes # (Auto) 0.8 x10^3/uL (1.0-4.8) Monocytes # (Auto) 0.1 x10^3/uL (0.0-1.1) Eosinophils # (Auto) 0.0 x10^3/uL (0.0-0.7) Basophils # (Auto) 0.0 x10^3/uL (0.0-0.2) Erythrocyte Sedimentation Rate 6 (0-25) Sodium Level 137 mmol/L (136-145) Potassium Level 4.5 mmol/L (3.5-5.1) Chloride Level 105 mmol/L (98-107) Carbon Dioxide Level 27 mmol/L (21-32) Anion Gap 5 (6-14) Blood Urea Nitrogen 11 mg/dL (7-20) Creatinine 0.9 mg/dL (0.6-1.0) Estimated GFR (Cockcroft-Gault) 75.3 BUN/Creatinine Ratio 12 (6-20) Glucose Level 133 mg/dL (70-99) Calcium Level 9.0 mg/dL (8.5-10.1) Total Bilirubin 0.2 mg/dL (0.2-1.0) Aspartate Amino Transf (AST/SGOT) 14 U/L (15-37) Alanine Aminotransferase (ALT/SGPT) 29 U/L (14-59) Alkaline Phosphatase 78 U/L (46-116) Total Protein 7.2 g/dL (6.4-8.2) Albumin 3.5 g/dL (3.4-5.0) Albumin/Globulin Ratio 0.9 (1.0-1.7) Phenytoin (Dilantin) Level < 0.5 mcg/mL (10.0-20.0) Phenytoin Last Dose Date Unknown Phenytoin Last Dose Time Unknown Medications Current Medications Acetaminophen/ Hydrocodone Bitart (Lortab 7.5/325) 1 tab PRN Q6HRS PRN PO PAIN Last administered on 02/16/21 05:08; Start 02/15/21 at 10:45 Amlodipine Besylate (Norvasc) 5 mg DAILY PO Last administered on 02/16/21 08:02; Start 02/15/21 at 10:45 Cyclobenzaprine HCl (Flexeril) 10 mg TID PRN PO MUSCLE SPASMS Last administered on 02/16/21at 02:51; Start 02/15/21 at 10:45 Enoxaparin Sodium (Lovenox 40mg Syringe) 40 mg Q12HR SQ Last administered on 02/16/21 08:03; Start 02/15/21 at 12:00 Enoxaparin Sodium (Lovenox Per Pharmacy Prophylaxis Dosing) 1 each PRN DAILY PRN MC SEE COMMENTS; Start 02/15/21 at 12:00 Hydrochlorothiazide (Microzide) 12.5 mg DAILY PO Last administered on 02/16/21at 08:01; Start 02/15/21 at 11:00 Levetiracetam (Keppra) 500 mg BID PO Last administered on 02/16/21 08:02; Start 02/15/21 at 12:15 Lidocaine (Lidoderm) 2 patch DAILY TD ; Start 02/16/21 at 11:00 Multivitamins (Thera M Plus) 1 tab DAILY PO Last administered on 02/16/21at 08:02; Start 02/16/21 at 09:00 Phenytoin Sodium (Dilantin) 500 mg 0800,2000 PO Last administered on 02/15/21at 11:13; Start 02/15/21 at 10:45; Stop 02/15/21 at 12:11; Status DC Vitals/I & O Vital Sign - Last 24 Hours 02/15/21 02/15/21 02/15/21 02/15/21 11:00 11:13 15:00 17:22 Temp 98.2 97.9 98.2 97.9 Pulse 70 70 65 70 Resp 16 16 16 B/P (MAP) 169/95 (119) 169/95 172/94 (120) 143/98 (113) Pulse Ox 97 98 O2 Delivery Room Air Room Air Room Air 02/15/21 02/15/21 02/15/21 02/16/21 19:00 20:10 23:13 03:27 Temp 97.7 97.8 97.8 97.7 97.8 97.8 Pulse 70 62 71 Resp 18 18 18 B/P (MAP) 158/98 (118) 175/109 (131) 161/101 (121) Pulse Ox 95 94 97 O2 Delivery Room Air Room Air Room Air Room Air 02/16/21 02/16/21 02/16/21 02/16/21 05:08 05:54 07:00 07:16 Temp 97.4 97.4 Pulse 84 Resp 16 16 17 B/P (MAP) 193/124 (147) Pulse Ox 96 96 97 O2 Delivery Room Air Room Air Room Air Room Air 02/16/21 02/16/21 02/16/21 07:30 08:02 09:56 Pulse 84 75 B/P (MAP) 193/124 141/79 (99) O2 Delivery Room Air Intake and Output 02/15/21 02/15/21 02/16/21 15:00 23:00 07:00 Intake Total 500 ml 120 ml Balance 500 ml 120 ml Justifications for Admission Other Justification SIMONE HUNT MD Feb 16, 2021 10:34
[2021-02-16] MEDS: LIDOCAINE (700MG/PATCH) PATCH. TD SCH (10:49)
--- NOTE | 2021-02-16 12:36 | RAD ---
PROCEDURE: MRI lumbar spine 02/16/2021 12:14 PM. REASON FOR STUDY: Reason: right radiculopathy, numbness, tingling in lower left extremity / Spl. Inst ructions: / History: . Comparison is made with CT of 02/07/2021 and MRI 2 2014. TECHNIQUE: Multiplanar multisequence imaging was performed. FINDINGS: Image quality is only moderate. There is poor [id number] on the sagittal STIR sequence and the axial sequences. L1-2: There is no midline protrusion. There is mild posterolateral disc bulging. There does not appea r to be significant spinal canal or foraminal narrowing. L2-3: There is mild broad-based disc protrusion flattening the thecal sac anteriorly. There are moder ate hypertrophic changes in the posterior elements and there is at least moderate spinal stenosis. Th ere appears to be moderate bilateral foraminal narrowing. L3-4: There is now mild anterior offset of L3 on L4. There is broad-based disc protrusion with some e xtension into the foramina on each side. There are moderate hypertrophic changes in the posterior dali ments. There is evidence of decompression posteriorly on the right since the prior exam. The canal sh ows mild narrowing. There appears to be at least moderate bilateral foraminal narrowing. Some disc ma y extend into the right L4-5: There is mild broad-based disc protrusion with some extension into the foramina. There has been posterior decompression on the right. The canal is not significantly narrowed. There is mild right a nd more severe left foraminal narrowing. L5-S1: There is loss of disc height. There is mild protrusion more prominent to the left. This indent s the thecal sac. The spinal canal does not appear narrowed. There is mild left foraminal narrowing. The lumbar vertebrae are normal in height. There is some edema at L3 and L4 adjacent to the disc, pre sumably reactive due to disc disease. No other bone marrow signal abnormality is seen. Conus medullar is ends at L1-2. IMPRESSION: Postoperative changes are now seen on the right at L3-4 and L4-5. At the L3-4 level, ther e is suggestion of some extension of disc abnormality into the right foramen, although postoperative change could potentially have a similar appearance. No other significant changes noted. Electronically signed by: Alex Lobo Jr., MD (02/16/2021 12:34 PM) [id number]
[2021-02-16] MEDS: hydrALAZINE 10 MG TABLET PO SCH ×2 (13:12→21:22)
--- NOTE | 2021-02-16 15:03 | PDOC ---
Provider Note Date of Service: DATE: 02/16/21 TIME: 14:59 Provider Note Patient seen and examined consulted for back and right leg pain reports symptoms began about a week ago history of surgery at L3-4, L4-5 on the right in 2014 exam- neuro intact Lumbar MRI with Postoperative changes on the right at L3-4 and L4-5. At the L3-4 level, there is suggestion of some extension of disc abnormality into the right foramen, although postoperative change could potentially have a similar appearance. No other significant changes noted. She has post operative chnages at L3-4 which would make re operation more complicated recommend conservative treatments and hopefully surgery can be avoided will start medrol dose pack will follow Justifications for Admission Other Justification KRISTINE BINGHAM MD Feb 16, 2021 15:03
[2021-02-16] MEDS: methylPREDNISolone 4 MG TABLET. PO SCH ×4 (16:36→21:21)
[2021-02-17 03:00] VITALS: BP 132/99
[2021-02-17 07:15] VITALS: BP 152/95
[2021-02-17] MEDS: hydroCHLOROthiazide 12.5 MG CAPSULE PO SCH (08:28)
[2021-02-17] MEDS: CYCLOBENZAPRINE 10 MG TABLET. PO PRN ×2 (08:28→12:19)
[2021-02-17] MEDS: levETIRAcetam 500 MG TABLET PO SCH (08:28)
[2021-02-17] MEDS: methylPREDNISolone 4 MG TABLET. PO SCH ×2 (08:28→12:08)
[2021-02-17] MEDS: LIDOCAINE (700MG/PATCH) PATCH. TD SCH (08:29)
[2021-02-17] MEDS: HYDROcodone/APAP 7.5/325MG 1 TAB TABLET PO PRN ×2 (08:29→12:08)
[2021-02-17] MEDS: MULTIVITAMIN with MINERAL TABLET. PO SCH (08:29)
[2021-02-17] MEDS: hydrALAZINE 10 MG TABLET PO SCH ×2 (08:29→12:09)
[2021-02-17] MEDS: ENOXAPARIN 40 MG/0.4 ML SYRINGE. SQ SCH (08:34)
[2021-02-17] MEDS ORDERED: MAGNESIUM HYDROXIDE 2,400 MG/30 ML ORAL.SUSP. PO ONE (09:15)
[2021-02-17] MEDS ORDERED: METH4TAB6 PO (09:32)
--- NOTE | 2021-02-17 09:39 | PDOC3 ---
DISCHARGE SUMMARY Date of Admission Date of Admission Date of Admission: Feb 15, 2021 at 01:29 Date of Discharge Date of Discharge 02/17/21 Primary Diagnosis Primary Diagnosis 1. Acute lumbar radiculopathy, right side. 2. Hypertension, not controlled. Initially, the patient was in hypertensive crisis, but it may be due to pain. Now, the blood pressure is better controlled. 3. Seizure disorder, stable. 4. Lumbar spinal stenosis with previous lumbar laminectomy at L3-4, L4-5 level. 5. Thyroid goiter. 6. History of vitamin B12 deficiency. 7. History of vitamin D deficiency. Consults Consults Jigna Talbot MD; Devante Cheek MD Brief hospital course Brief hospital course This 70-year-old female who has a history of lumbar spinal stenosis and who has had previous lumbar diskectomy at L3-4 and L4-5 level, started having severe low back pain. She has pain that radiates to her right lower extremity and she started having increasing weakness as well as sharp shooting pains with tingling and numbness and weakness in the right lower extremity. She was seen here at the emergency room a week ago and CT scan of lumbar spine showed advanced multilevel lumbar facet and disk disease causing multilevel canal and foraminal stenosis at multiple levels. An MRI was recommended. The patient was seen in the office. The patient has been taking hydrocodone, muscle relaxers, but her symptoms got much worse and yesterday because of the severe pain and weakness, she came to the emergency room and was admitted for further management. For more details regarding the past history, family history, social history, surgical history and other details, please refer to the H&P. Consult Dr. Talbot for rehab evaluation and management. Consult Dr. Cheek for neurosurgical evaluation and management. MRI of the lumbar spine has been ordered by the ER physician. Start PT, OT. Continue Flexeril, increase the dose of hydrocodone. Continue IV morphine for pain control. The patient's condition is still not stable enough to be discharged home. Continue present treatment. MRI LS Spine Postoperative changes are now seen on the right at L3-4 and L4-5. At the L3-4 level, there is suggestion of some extension of disc abnormality into the right foramen, although postoperative change could potentially have a similar appearance. No other significant changes noted. Patient was seen by Dr. Ayers and Dr. Talbot. Dr. Ayers recommended conservative treatment and started her on Medrol Dosepak. Redo surgery will be very difficult. Clinically she is improving. Condition treatment options discussed with the patient and her . Her pain is better controlled. Okay to discharge home. Medications Medications reviewed and reconciled for discharge. Home Meds Active Scripts Methylprednisolone (METHYLPREDNISOLONE) 4 Mg Tab.ds.pk, 1 EA PO UD for back pain, #21 TAB 0 Refills Prov:SHREYA BOURGEOIS MD 02/17/21 Levetiracetam (KEPPRA) 500 Mg Tablet, 500 MG PO BID for seizure for 30 Days, #60 TAB Prov:SHREYA BOURGEOIS MD 02/15/21 Cyclobenzaprine Hcl (CYCLOBENZAPRINE HCL) 10 Mg Tablet, 1 TAB PO TID PRN for MUSCLE SPASMS, #20 TAB Prov:BHAVNA DENG DO 02/05/21 Hydrocodone Bit/Acetaminophen (HYDROCODONE-APAP 5-325 ) 1 Tab Tablet, 1 TAB PO PRN Q6HRS PRN for PAIN, #20 TAB 0 Refills Prov:BHAVNA DENG DO 02/05/21 Reported Medications Hydrochlorothiazide (HYDROCHLOROTHIAZIDE TABLET) 12.5 Mg Tablet, 1 TAB PO DAILY for high blood pressure 02/15/21 Amlodipine Besylate (AMLODIPINE BESYLATE) 5 Mg Tablet, 1 TAB PO DAILY for high blood presure 02/15/21 Multivitamin (MULTI VITAMIN DAILY) 1 Each Tablet, 1 EACH PO DAILY, TAB 05/05/17 Discontinued Reported Medications Phenytoin Sodium Extended (DILANTIN) 100 Mg Capsule, 500 MG PO 08,1999 for seizures, CAP 02/15/21 Phenytoin Sodium Extended (DILANTIN) 100 Mg Capsule, 300 MG PO HS, CAP 03/24/17 Phenytoin Sodium Extended (DILANTIN) 100 Mg Capsule, 200 MG PO DAILY, CAP 03/24/17 Allergy Allergies Coded Allergies Type Severity Reaction Last Updated Verified No Known Drug Allergies 05/12/17 No Follow up in 5 days. DISPOSITION: Home Comments Discharge Management - 35 minutes. For other details please refer to discharge instructions Justicifation of Admission Dx: Justifications for Admission: Justification of Admission Dx: Comment: (Acute right lumbar radiculopathy with weakness of the right lower extremity) SHREYA BOURGEOIS MD Feb 17, 2021 09:39
--- NOTE | 2021-02-17 10:04 | CONS ---
DATE OF CONSULTATION: 02/17/2021 ATTENDING PHYSICIAN: Kim Feng MD. REASON FOR CONSULTATION: The patient was seen at the request of Dr. Feng for rehab evaluation. HISTORY: This is a 70-year-old female with known lumbar spinal stenosis, status post lumbar decompression laminectomy done at L3-L4, L4-L5 level. About 8 years ago, she started having lower back pain with radiation to her right lower extremity in the last week after she carried heavy grocery bags. She also dealing with right knee pain for which she is using a boot. The patient admits some tingling and numbness and electrical shock-like feeling in her right lower extremity. She was seen in the Emergency Room. CT scan of lumbar spine showed advanced multilevel lumbar facet and degenerative disk disease causing multilevel canal and foraminal stenosis at multiple levels. MRI scan of her lumbar spine done on 02/16/2021, revealed postoperative changes on the right at L3-L4, L4-L5. At L3-L4 level, there is a suggestion of some extension of the disk abnormality including right foramen. Although postoperative changes could potentially have similar appearance. Patient admits constipation. She denies any trouble with her bladder control. The patient is retired. PAST MEDICAL HISTORY: Significant for seizure disorder, thyroid goiter with bilateral thyroid nodules, 1 of them was hyper performing nodule, diverticulosis, colonic polyps, sleep apnea, obesity, vitamin D deficiency, B12 deficiency and hypertension. She had treatment for small-bowel obstruction and also salpingo-oophorectomy. SOCIAL HISTORY: She lives with her . No stairs for her to manage. She had a walker at home. FAMILY HISTORY: Brother having myocardial infarction and diabetes. Brother had a colonic cancer and cerebrovascular accident at age 54 and seizures. Father had coronary artery disease. Mother with diabetes mellitus, coronary artery disease. Sister had cerebral aneurysm. ALLERGIES: She is not known allergic to any medication. MEDICATIONS: After MRI scan, Dr. Ayers started her on a Medrol Dosepak. She admits less electrical shock-like feeling in her right lower extremity this morning. PHYSICAL EXAMINATION: NEUROLOGICAL: On physical examination today revealed a middle-aged female. She is alert, oriented to time, place, person and circumstance, follows commands appropriately. EXTREMITIES: She had painful limited movements of her lumbar spine without any paraspinal muscle spasm and localized tenderness to palpation over sacroiliac joint area bilaterally over right trochanteric bursa and medial knee joint line. She had crepitus on range of motion of her knee joint without any obvious knee joint effusion. She had painful range of motion of both hip and ankle joint. She had decreased a deep tendon reflexes overall. She had equal perception of touch and pinprick sensation bilaterally. She had 5/5 grade muscle strength in her extremities. She is independent with bed mobility and transfers not using proper body mechanics during mobility. She is limping on her right foot while up walking without assistive device just, but is independent with bed mobility and transfers and up walking. Her skin is intact at this time. She is obese. She had negative straight leg raising test bilaterally. ASSESSMENT: A middle-aged female with previous lumbar decompression laminectomy for lumbar spinal stenosis with continued degenerative disk disease and degenerative joint disease of lumbar vertebrae with right lumbar radiculitis started after she carried some grocery bags about a week ago. 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 RECOMMENDATIONS: To let her go home with outpatient followup. Continue Medrol Dosepak. I have reviewed with her a home program of physical modalities, stretching exercises and proper body mechanics. I advised her to use a cane in her left hand while weightbearing on her right foot to help with her right trochanteric bursitis and right knee pain. To consider trigger point injections if the pain persists. Dr. Feng appreciate asking me to participate in the care of this interesting patient. I will be glad to see her for followup with you on as needed basis. DARIUS CONDE: Angelina TID: [id number]
--- NOTE | 2021-02-17 10:22 | NUR ---
SW following. Discussed with RN, pt from home, room air, regular diet. PT/OT ordered. Dr. Dahiana britton with pt going home today. RN advised no SW needs at this time. SW will continue to follow.
[2021-02-17 10:55] VITALS: BP 150/97
[2021-02-17 12:09] VITALS: BP 150/97
--- NOTE | 2021-02-17 12:47 | NUR ---
spoke to Dr. Feng regarding her taking Apresoline--did he want her to continue. wanted it added to her home meds--unable to add related to medications being finalized reviewed discharge instructions and she verbalized understanding of these especially her new medications to call and make an appt on Wednesday Addendum: 02/17/21 at 1337 by JOSI CASTILLO RN returned signed paperwork dismissed to home
[2021-02-17] MEDS ORDERED: hydrALAZINE 25 MG TABLET PO SCH (14:00)
[2021-02-17] MEDS ORDERED: methylPREDNISolone 4 MG TABLET. PO SCH (21:00)
[2021-02-18] MEDS ORDERED: methylPREDNISolone 4 MG TABLET. PO SCH (09:00)
[2021-02-19] MEDS ORDERED: methylPREDNISolone 4 MG TABLET. PO SCH (09:00)
[2021-02-20] MEDS ORDERED: methylPREDNISolone 4 MG TABLET. PO SCH (09:00)
[2021-02-21] MEDS ORDERED: methylPREDNISolone 4 MG TABLET. PO SCH (09:00)
== END 2021-02-17 13:43 | disposition home or self-care (01) | DRG 552 ==
LOC: ER 00:35 → 4 NORTH 01:29
PROVIDERS: ADMIT Internal Medicine; ATTEND Internal Medicine
DX: M54.16 Radiculopathy, lumbar region (principal); I16.9 Hypertensive crisis, unspecified; Z68.41 Body mass index [BMI] 40.0-44.9, adult; E66.9 Obesity, unspecified; G40.909 Epilepsy, unspecified, not intractable, without status epilepticus; I10 Essential (primary) hypertension; E55.9 Vitamin D deficiency, unspecified; G47.30 Sleep apnea, unspecified; K57.90 Diverticulosis of intestine, part unspecified, without perforation or abscess without bleeding; E04.9 Nontoxic goiter, unspecified; M19.90 Unspecified osteoarthritis, unspecified site; M48.061 Spinal stenosis, lumbar region without neurogenic claudication; Z80.0 Family history of malignant neoplasm of digestive organs; Z82.3 Family history of stroke; Z82.49 Family history of ischemic heart disease and other diseases of the circulatory system; Z83.3 Family history of diabetes mellitus; Z87.19 Personal history of other diseases of the digestive system; Z87.891 Personal history of nicotine dependence
CPT/HCPCS: 36415; 72148; 80053; 80185; 82607; 85025; 85651; 90471; 90686; 96374; J1100; J1650; J2270; J7509; 97110-GP; 97116-GP; 99285-25; G0378